=== PATIENT | female | born 1955 | race Caucasian/White ===

== ENCOUNTER 2017-06-11 12:43 | Day surgery (SDC) | payer BC, MEDICARE, SELFPAY ==
[2017-06-11 12:58] VITALS: BP 182/94; PULSE 97; RESP 16; TEMP 36.7; O2SAT 99; BMI 27.6
[2017-06-11 13:16] LABS: Bedside Glucose 106 mg/dL (70-110)
--- NOTE | 2017-06-11 15:28 | COLBX_PTH ---
PATIENT: MAXIMO WALDEN LOC: EN U#:[id number] AGE/SX: 62/F ROOM: RE06/11/[address]: Dr. Juventino Dupree MD : [id number] BED: DIS: 06/11/2017 SPEC #: [id number] RECD: 06/12/17 11:47 STATUS: MARTI REAntonio #: [id number] MARI: 06/11/17 15:[address]: Juventino Dupree DEPT: SURGICAL PATHOLOGY RECD BY: Rich Sotomayor ENTERED: 06/12/17 11:48 SP TYPE: COLON BX OTHR DR: Dr. Anupam Alvarado MD Tissues: Cecum, NOS Procedures: Surgery Specimen Level IV HEADER OPERATION: Colonoscopy PRE-OP DIAGNOSIS: Screening TISSUE SUBMITTED: Cecal polyp MICROSCOPIC DIAGNOSIS Cecal polyp, biopsy: Tubular adenoma. SJ:christian 06/13/17 MICROSCOPIC DESCRIPTION Slides are reviewed. GROSS DESCRIPTION Received in fixative is one container labeled with the patient's name and designated cecal polyp. The specimen consists of multiple irregular fragments of light price soft tissue that in aggregate measure 1 x 0.2 x 0.1 cm. The specimen is totally submitted in one cassette. / SJ:christian 06/12/17 TC:1 CPT: 22936
[2017-06-11 15:41] VITALS: BP 109/52; BP 182/94; PULSE 76; RESP 16; TEMP 36.3; O2SAT 94
[2017-06-11 15:45] VITALS: BP 120/74; BP 182/94; PULSE 78; RESP 16; O2SAT 95
[2017-06-11 15:50] VITALS: BP 142/71; BP 182/94; PULSE 75; RESP 16; O2SAT 96
[2017-06-11 15:55] VITALS: BP 142/77; BP 182/94; PULSE 76; RESP 16; O2SAT 96
[2017-06-11 16:11] VITALS: BP 140/82; BP 182/94; PULSE 77; RESP 16; TEMP 36.5; O2SAT 96
--- NOTE | 2017-06-16 07:34 | PCM.OPRPT ---
Report of Operation Date of Procedure: 06/11/17 Pre-Operative Diagnosis: screening colonoscopy Post-Operative Diagnosis: polyps in cecum and mid sigmoid, few diverticula Surgery/Procedure Performed:: colonoscopy with snare polypectomy forest pathology professor: None Type of Anesthesia:: MAC Anesthesiologist: Junaid Dietrich Specimen's removed: cecal polyp Description of Procedure: The patient was brought to the endoscopy suite. Sign in was performed verifying patient, site, planned procedure, critical nursing information, the patient was monitored with cardiac, pulse oximetric, and blood pressure monitoring devices. Monitored anesthetic care was provided for sedation. Following IV sedation the patient was positioned for colonoscopy. A digital rectal exam was performed which revealed no palpable abnormalities The video colonoscope was inserted and advanced to the cecum as verified by the ileocecal valve, cecal base anatomic features and palpation. there were small polyps noted in the cecum, which removed with snare polypectomy and sent to pathology. The remainder of the cecum and ascending colon and transverse colon was otherwise unremarkable. the patient had few diverticula in the mid sigmoid region. There was a small polyp in the sigmoid region. This was also removed with snare polypectomy but no tissue remained to be sent. The remainder of the colonoscopy was unremarkable. Scope was retroflexed and the anal verge was unremarkable. The patient tolerated the procedure well and was brought to recovery in stable condition
--- NOTE | 2017-06-16 07:37 | OP.PCM_ITS ---
Report of Operation Date of Procedure: 06/11/17 Pre-Operative Diagnosis: screening colonoscopy Post-Operative Diagnosis: polyps in cecum and mid sigmoid, few diverticula Surgery/Procedure Performed:: colonoscopy with snare polypectomy safe expert: None Type of Anesthesia:: MAC Anesthesiologist: Junaid Dietrich Specimen's removed: cecal polyp Description of Procedure: The patient was brought to the endoscopy suite. Sign in was performed verifying patient, site, planned procedure, critical nursing information, the patient was monitored with cardiac, pulse oximetric, and blood pressure monitoring devices. Monitored anesthetic care was provided for sedation. Following IV sedation the patient was positioned for colonoscopy. A digital rectal exam was performed which revealed no palpable abnormalities The video colonoscope was inserted and advanced to the cecum as verified by the ileocecal valve, cecal base anatomic features and palpation. there were small polyps noted in the cecum, which removed with snare polypectomy and sent to pathology. The remainder of the cecum and ascending colon and transverse colon was otherwise unremarkable. the patient had few diverticula in the mid sigmoid region. There was a small polyp in the sigmoid region. This was also removed with snare polypectomy but no tissue remained to be sent. The remainder of the colonoscopy was unremarkable. Scope was retroflexed and the anal verge was unremarkable. The patient tolerated the procedure well and was brought to recovery in stable condition
== END 2017-06-11 16:37 | disposition home or self-care (01) ==
LOC: EN 12:44 → AC 12:48
PROVIDERS: Family Provider Family Medicine; PCP Family Medicine; Visit Provider Surgery
PROC: 0DJD8ZZ Inspection of Lower Intestinal Tract, Via Natural or Artificial Opening Endoscopic (ICD-10-PCS; CPT 45378; principal; 2017-06-11 13:40)
DX: Z12.11 Encounter for screening for malignant neoplasm of colon (principal); D12.0 Benign neoplasm of cecum; K63.5 Polyp of colon; K57.30 Diverticulosis of large intestine without perforation or abscess without bleeding; J45.909 Unspecified asthma, uncomplicated; F32.9 Major depressive disorder, single episode, unspecified; F41.1 Generalized anxiety disorder; E11.9 Type 2 diabetes mellitus without complications; M15.9 Polyosteoarthritis, unspecified; I10 Essential (primary) hypertension; E78.00 Pure hypercholesterolemia, unspecified; E06.9 Thyroiditis, unspecified; Z87.19 Personal history of other diseases of the digestive system; Z86.72 Personal history of thrombophlebitis; Z85.42 Personal history of malignant neoplasm of other parts of uterus; Z86.718 Personal history of other venous thrombosis and embolism; Z86.79 Personal history of other diseases of the circulatory system; Z78.0 Asymptomatic menopausal state; Z96.641 Presence of right artificial hip joint; Z96.652 Presence of left artificial knee joint; Z90.711 Acquired absence of uterus with remaining cervical stump; F17.210 Nicotine dependence, cigarettes, uncomplicated; Z79.82 Long term (current) use of aspirin; Z79.899 Other long term (current) drug therapy
CPT/HCPCS: 45385; 82962; 88305; J7120

== ENCOUNTER 2017-06-18 13:30 | Outpatient (RCR) | payer BC, MEDICARE, SELFPAY ==
--- NOTE | 2017-05-01 14:43 | HP.OTEVAL ---
Patient's Visit Information MAXIMO WALDEN is a 62 year old F, referred to Occupational Therapy by Berny Henson DR[facility], with a diagnosis of right hand pain. Date of Evaluation: 04/28/17 Occupational Therapist: RACHEL Silva/Zen, CHT - Subjective Subjective: This 64 year old female was seen for inital OT eval on 04-28-17. pt states she was walking her dog on 04-22-17, he went to run and she had the dog leash wrapped around her right hand. pt feel like her fingers were hyper-extended during this event. X-ray was taken but negative for fx. 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 IF MCP -10/85 PIP -25/90 DIP -5/20. MF MCP -10/85 PIP -15/95 DIP -10/20. RF MCP -5./85 PIP -15/95 DIP -25/0. LF MCP -10/90 PIP -15/85 DIP -5/15. Left. IF MCP 0/85 PIP 0/105 DIP 0/45. MF MCP 0//85 PIP +5/100 DIP +/50. RF MCP +10/75 PIP +15/105 DIP +10/25. LF MCP 0/80 PIP +5/95 DIP +10/25 - Strength Glass Processing Worker: Right trace left 55# Lateral Pinch: NT Tripod Pinch: NT - Sensation Sensation Comments: denies any change in sensation - Hand/Wrist Evaluation Total Score of Pain & Functional Sections: 59 - Goals Goal:: PT will demo at increase in right hospital pharmacy director strength to 30# or greater to increase ind on BADLS and IADLS Goal:: pt will report pain in hands no greater than 2/10 when performing BADLs and IADLs by d/c Goal:: pt will demo understanding of joint protection and use of ad. eq. with BADLS and IADls to increase pts ind. with BADLS and IADLS by D/c - Rehabilitation General Assessment: pt demo the ability to form a composite fist but is a struggle to reach and task was painful- pt demo limited ex of right digits- pain with compostie fist- edema is better- Rehabilitation Potential: Good - Anticipated Interventions Anticipated Interventions: A/AAROM/PROM, Modalities, Orthoses, Joint Protection/Energy Conservation, Ergonomic Education - Visit Plan Frequency: 1-2x /Week Duration: 4 Weeks General Plan: re'd therapy sessions -12xweek for 4 weeks to ed. pt on joint protection césar. during her performance of BADLS and ed. pt on Ad. eq.- therapy will use modalities as need to decrease joint stiffness. TEXT: Thank you for the opportunity to evaluate your patient. For Medicare and Medicare HMO plans, please review the plan of care and approve it. It will need to be FAXED BACK to us at [phone] for Medicare purposes. Please let me know if there are questions or concerns regarding this plan of care. Physician Signature: Date:
--- NOTE | 2017-06-18 16:41 | HP.OTDCSUM_ITS ---
HP - OT D/C Summary It has been my pleasure to treat MAXIMO WALDEN under orders from Berny Henson, for the diagnosis of right hand pain for a total of 8 visit(s). Please see the following information for a summary of their discharge status. - Overall Improvement % Improvement: 90 - Objective Objective/Function: pt demo full funcitonal digit ext and flex of fingers at PLOF with arthritis deformities- pt demo with a 70# director of medical education strength - Goals Patient Goals: Regain Mobility, Regain Strength, Decrease Pain, Decrease Swelling/Stiffness, Use Hand/Wrist/Arm Normally Again Goal:: PT will demo at increase in right director of medical education strength to 30# or greater to increase ind on BADLS and IADLS Goal:: pt will report pain in hands no greater than 2/10 when performing BADLs and IADLs by d/c Goal:: pt will demo understanding of joint protection and use of ad. eq. with BADLS and IADls to increase pts ind. with BADLS and IADLS by D/c - Plan Plan: D/C - D/C Information Discharge Comments: pt was seen for 8 OT sessions- therapy worked with pt to find ad. eq and home modifications for her BADls and IADLS. pt was able to gain full functional ROM of her right hand with pain no greater than 1-2/10 (achy pain). pt demo a increase in right director of medical education strength to 70#. pt has met functional goals and is D/C at this time. If there are questions or concerns regarding this patient's occupational therapy , please fell free to call me at [phone]. Thank you for the referral of this patient. Sincerely, Bessie Vega, OTR/L, CHT
== END 2017-06-18 19:00 | disposition home or self-care (01) ==
LOC: OT 13:30
PROVIDERS: Family Provider Family Medicine; PCP Family Medicine; Visit Provider Orthopaedic Surgery
DX: M79.641 Pain in right hand (principal)
CPT/HCPCS: 97035; 97110; 97140; 97166; 97168; 97530; G8987; G8988; G8989

== ENCOUNTER → 2017-12-30 18:07 | Outpatient (CLI) | payer BC, MEDICARE, SELFPAY ==
[2018-01-05 13:31] LABS: HPV Reflexed? NOT INDICATED
== END ==
PROVIDERS: Family Provider Family Medicine; PCP Family Medicine; Referring Provider Obstetrics & Gynecology; Visit Provider Obstetrics & Gynecology
DX: Z12.4 Encounter for screening for malignant neoplasm of cervix (principal)
CPT/HCPCS: 87624; 88175; G0145

== ENCOUNTER → 2018-10-08 | Outpatient (CLI) | payer BC, MEDICARE, SELFPAY ==
[2017-12-30 14:58] VITALS: BMI 29.1
[2018-10-08 09:44] LABS: Lipase 236 U/L (73-393)
== END | disposition home or self-care (01) ==
LOC: LABSPEC 08:30
PROVIDERS: Family Provider Family Medicine; PCP Family Medicine; Referring Provider Family Medicine; Visit Provider Family Medicine
DX: R10.9 Unspecified abdominal pain (principal)
CPT/HCPCS: 83690

== ENCOUNTER 2018-11-11 10:19 | Day surgery (SDC) | payer BC, MEDICARE, SELFPAY ==
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
[2018-11-11] VITALS (7 sets, daily range): BP systolic 116–155; BP diastolic 73–79; PULSE 78–84; RESP 16; TEMP 36.3–36.8; O2SAT 93–98; BMI 27.9
[2018-11-11] MEDS: Lactated Ringers 1,000 ML 100 ML IV (10:49)
[2018-11-11 10:56] LABS: Bedside Glucose 101 mg/dL (70-110)
--- NOTE | 2018-11-11 11:30 | IMM_PTH ---
PATIENT: MAXIMO WALDEN LOC: EN U#:[id number] AGE/SX: 63/F ROOM: RE11/11/[address]: Dr. Juventino Dupree MD : 1955 BED: DIS: 11/11/2018 SPEC #: [id number] RECD: 11/11/18 15:23 STATUS: MARTI REQ #: [id number] MARI: 11/11/18 11:[address]: Juventino Dupree DEPT: IMMUNOHISTOCHEMISTRY RECD BY: Jami Monsivais ENTERED: 11/11/18 15:24 SP TYPE: IMMUNO OTHR DR: Dr. Anupam Alvarado MD Tissues: B - Stomach, NOS Procedures: H Pylori (initial) PHYSICIAN & INSTITUTION [place] [id number] SPECIMEN INFORMATION: Tissue Source: B - Antral biopsy Clinical Info: Abdomen pain Specimen Number: [id number] CPT code: 98566 METHODOLOGY: Deparaffinized sections of prefer/formalin-fixed tissue or PAP/DQ stained slides are incubated with monoclonal/polyclonal antibodies/oligonucleotide probes. Localization is made via biotin free immunoperoxidase method. Appropriate controls are performed and reacted as expected. Results on target cell population are indicated in the following table: RESULTS: ANTIBODY / CLONE RESULT Block B H Pylori (polyclonal) negative These tests were developed and their performance characteristics determined by [facility]. They may not have been cleared or approved by the U.S. Food and Drug Administration. The FDA has determined that such clearance or approval is not necessary. INTERPRETATION: B. Antral biopsy: Negative for Helicobacter pylori organisms. AM:christian 11/12/18
--- NOTE | 2018-11-11 11:30 | EGD_PTH ---
PATIENT: MAXIMO WALDEN LOC: EN U#:[id number] AGE/SX: 63/F ROOM: RE11/11/[address]: Dr. Juventino Dupree MD : 1955 BED: DIS: 11/11/2018 SPEC #: [id number] RECD: 11/11/18 13:40 STATUS: MARTI YAYA #: [id number] MARI: 11/11/18 11:[address]: Juventino Dupree DEPT: SURGICAL PATHOLOGY RECD BY: Mary Kirkpatrick ENTERED: 11/11/18 14:32 SP TYPE: EGD BIOPSY OT DR: Dr. Anupam Alvarado MD Tissues: A - Duodenum, NOS B - Gastric mucous membrane C - Esophagus, NOS Procedures: Surgery Specimen Level IV HEADER OPERATION: [place] DIAGNOSIS: Abdominal pain TISSUE SUBMITTED: A. Duodenal biopsy, B. Antral biopsy for histo and H. pylori, C. Distal esophagus biopsy MICROSCOPIC DIAGNOSIS A. Duodenum, biopsy: No pathologic change. B. Gastric antrum, biopsy: Mild chronic inflammation. See comment. C. Distal esophagus, biopsy: Fragment of benign squamous mucosa. No evidence of inflammation. AM:christian 11/12/18 COMMENT B. The results of immunohistochemistry for Helicobacter pylori will be reported separately ([id number]). MICROSCOPIC DESCRIPTION Slides are reviewed. GROSS DESCRIPTION A - Received in fixative is one container labeled with the patient's name and designated duodenal biopsy. The specimen consists of one irregular fragment of light price soft tissue that measures 0.3 x 0.3 x 0.1 cm. The specimen is totally submitted in one cassette. B -Received in fixative is one container labeled with the patient's name and designated antrum biopsy. The specimen consists of one irregular fragment of light price soft tissue that measures 0.3 x 0.3 x 0.1 cm. The specimen is totally submitted in one cassette. C - Received in fixative is one container labeled with the patient's name and designated distal esophagus. The specimen consists of one irregular fragment of light price soft tissue that measures 0.3 x 0.1 x 0.1 cm. The specimen is totally submitted in one cassette. / PITO:christian 11/11/18 TC:3 CPT: 25556 x3
--- NOTE | 2018-11-11 11:53 | OP.ENDO_ITS ---
11/11/2018 Anupam Alvarado Re : Upper GI endoscopy procedure for Liliane Benton Dear Jenny This procedure was performed on Sunday, November 11, 2018. My impressions and recommendations are as follows: Impressions : - Normal examined jejunum. - No specimens collected. Recommendations : - Resume previous diet. - Continue present medications. - Use Prilosec (omeprazole) 40 mg PO BID. - Return to my office in 3 days. My findings are described in the full procedure note, which is enclosed. If I can be of further assistance, please feel free to contact me at Doctor phone number(s): , Work: . Sincerely, Juventino Dupree MD 11/11/2018 11:52:42 AM This report has been signed electronically.
== END 2018-11-11 12:20 | disposition home or self-care (01) ==
LOC: EN 10:21 → AC 10:23
PROVIDERS: Family Provider Family Medicine; PCP Family Medicine; Referring Provider Family Medicine; Visit Provider Surgery
PROC: 0DJ08ZZ Inspection of Upper Intestinal Tract, Via Natural or Artificial Opening Endoscopic (ICD-10-PCS; CPT 43235; principal; 2018-11-11 11:25)
DX: K26.9 Duodenal ulcer, unspecified as acute or chronic, without hemorrhage or perforation (principal); K29.70 Gastritis, unspecified, without bleeding; K44.9 Diaphragmatic hernia without obstruction or gangrene; J45.909 Unspecified asthma, uncomplicated; H81.10 Benign paroxysmal vertigo, unspecified ear; F32.9 Major depressive disorder, single episode, unspecified; E11.9 Type 2 diabetes mellitus without complications; K21.9 Gastro-esophageal reflux disease without esophagitis; M15.9 Polyosteoarthritis, unspecified; I10 Essential (primary) hypertension; E78.00 Pure hypercholesterolemia, unspecified; E04.2 Nontoxic multinodular goiter; E06.9 Thyroiditis, unspecified; M72.2 Plantar fascial fibromatosis; L71.9 Rosacea, unspecified; F41.1 Generalized anxiety disorder; Z86.718 Personal history of other venous thrombosis and embolism; Z87.19 Personal history of other diseases of the digestive system; Z85.42 Personal history of malignant neoplasm of other parts of uterus; Z86.010 Personal history of colon polyps; Z78.0 Asymptomatic menopausal state; Z79.82 Long term (current) use of aspirin; Z79.899 Other long term (current) drug therapy; F17.210 Nicotine dependence, cigarettes, uncomplicated
CPT/HCPCS: 43239; 82962; 88305; 88342; 94640; J7120

== ENCOUNTER 2019-01-22 12:00 | Outpatient (RCR) | payer BC, MEDICARE, SELFPAY ==
[2018-12-23 14:48] VITALS: BMI 27.9
--- NOTE | 2019-01-22 12:22 | HP.PTEVAL ---
Patient's Visit Information MAXIMO WALDEN is a 63 year old F referred to Physical Therapy by Noble Zheng DO with a diagnosis of L Achilles Tendinitis. Date of Evaluation: 12/28/18 Physical Therapist: Debi Miller DPT - Visit Plan Frequency: 2x /Week Duration: 4 Weeks Plan: Re-check soon. - Subjective Findings: 12/12/18 Pt. got out of bed and excruciating pain in bottom/back of heel once she stood up. Swelling/redness at ankle & going up. Ignored that day - was at ER for dog. Next day went to urgent care after symptoms didn't subside. X-rays - showed spurring. Determined either flare up from spurs or gout. Started on 20 mg prednisone. pain was at 708/10. 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 Upped prednosone to 60. Advised to stay off and ice. 12/16/18 had an appointment with lanolin plant operator for unrelated callus - assessed ankle, placed in boot for WB'ing. Saw Dr. 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 Advised to start weaning herself out of boot. Swelling and pain has decreased. Doesn't feel stable out of boot, feels weak. Standing for an hour (even in boot) discomfort at back of heel. Wears boot when outside of the house, up/down stairs, standing awhile to prepare food. Will take boot off for a couple hours and will amb. stairs once in awhile. Balance issues & neuropathy in both feet R>L. Two-story house, 12 steps - laundry on bottom floor, 3 steps into house, railing with all stairs. Worst: 4-5/10 Aggravating: prolonged, stairs, walking through grocery store Best: 1/10 Eases: Ice, rest, general movement. Dimas disruption of sleep. Noticeed N/T at top of L foot the other day. Radiating pain up to mid-calf. Occupation: Retired Typical Activities: Going to the gym to workout (25262 steps a day) fUE free weights/TRX squats & lunges/TABATTA (no high impact exercises), gardening, yard work, walking the dogs (2-3 miles), jogging [place] [employer] [place] with dogs, riding motorcycle. Wears low-cut [employer] hiking sneakers, orthotics in both for 40 years. PMH/Meds: DM-II, RA, see chart. DVT in Lesser Saphenous L leg 2006. - Pain Left Foot Pain Intensity (Out of 10): 0 - Objective Posture: Arrives in CAM boot. SLight FH, RS. Gait: Outside of CAM Boot: B pronation, decreased stance time on L, Pes Planus, antalgic, decreased diya. HR/TR: WFL w/ UE assist (tightness/tweak w/ TR). SLS: R - 7 seconds before LOB righted by UE. L - 2 seconds before LOB, fearful to attempt. Increase in pain 2/10 w/ weight shift to L. ROM: ANkle PF 40 25 degrees, DF 12 degrees, Eversion 35 degrees, Inversion 30 degrees. Strength: Ankle 4+/5 throughout Core: fair minus. Flexibility; Gastroc: severe Soleus: Severe Hamstring: Mod. Palpation: TTP at distal achilles increased size compared to R, decreases more proximal along the tendon. Girth: Figure 8 R 51 cm L 50 cm, malleoli R 22 cm L 23 cm - Goals Goal 1:: Pt. will be I w/ HEP & progression. Goal Time Frame: 4-6 Weeks Goal 2:: Pt. will demo 5/5 ankle strength Goal Time Frame: 4-6 Weeks Goal 3:: Pt. will demo 20 degrees of ankle DF Goal Time Frame: 4-6 Weeks Goal 4:: Pt. will amb. >300 ft. w/ normalized gait pattern & no CAM boot. Goal Time Frame: 4-6 Weeks - Rehabilitation Potential Physical Therapy Diagnosis: Presents w/ hypmobility, impaired ROM/flexibility, decreased strength , and pain which leads to antalgic gait. Rehabilitation Potential: Good - Anticipated Interventions Patient/Client Instruction: Educate patient on: Condition For the Purpose of:: To decrease pain Therapeutic Exercise to Include: Strength training, Endurance training, Balance training, Agility training, Body mechanics, Postural training, Flexibilty training, Gait and locomotor training, Active ROM, Dynamic Lumbar Stabilization For the Purpose of:: To improve muscle performance and motor function Iontophoresis (with Dexamethozone, with Acetic acid): Yes Cryotherapy (ice pack, ice massage): Yes Thermo therapy (hot pack): Yes Ultrasound (thermal/non thermal): Yes For the Purpose of:: To decrease pain Thank you for the opportunity to evaluate your patient. For Medicare and Medicare HMO plans, please review the plan of care and approve it. It will need to be FAXED BACK to us at [phone] for Medicare purposes. For Medicare only, by signing this I certify the plan of care. Please let me know if there are questions or concerns regarding this plan of care. Physician Signature: Date:
--- NOTE | 2019-01-22 12:28 | HP.PTDCSUM ---
HP - PT D/C Summary It has been my pleasure to treat MAXIMO WALDEN under orders from Noble Zheng DO, for the diagnosis of L Achilles Tendinitis for a total of 8 visit(s). Discharge Date: Please see the following information for a summary of their discharge status. - Subjective Subjective: Patient reports that she saw Dr. Eubanks- he gave her a night splint which she is wearing- trying to change things with orthotics and other options. She plans to go back to him in a few weeks. She has some good ideas now to decrease pain and is now able to touch her foot without pain. Fears she is chronic. - Pain Left Foot Pain Intensity (Out of 10): 0 - Overall Improvement % Improvement: 90 - Objective Objective/Function: Gait: no CAM walker-no significant devaition noted HR/TR: WFL w/ UE assist (tightness/tweak w/ TR). SLS: R - 10 seconds before LOB righted by UE. L - 8 seconds before LOB ROM: WFL Strength: Ankle 4+/5 throughout Core: fair minus. Flexibility; Gastroc: severe Soleus: Severe Hamstring: Mod. Palpation: TTP at distal achilles increased size compared to R, decreases more proximal along the tendon. - Goals Goal 1:: Pt. will be I w/ HEP & progression. Goal Progress: Goal Met Goal 2:: Pt. will demo 5/5 ankle strength Goal Progress: Progressing Goal 3:: Pt. will demo 20 degrees of ankle DF Goal Progress: Progressing Goal 4:: Pt. will amb. >300 ft. w/ normalized gait pattern & no CAM boot. Goal Progress: Goal Met - Plan Plan: Discharge to I HEP - D/C Information If there are questions or concerns regarding this patient's physical therapy, please feel free to call me at [phone]. Thank you for the referral of this patient. Sincerely, Debi Miller DPT
== END 2019-01-22 19:00 | disposition home or self-care (01) ==
LOC: PT 12:00
PROVIDERS: Family Provider Family Medicine; PCP Family Medicine; Referring Provider Orthopaedic Surgery; Visit Provider Orthopaedic Surgery
DX: M76.62 Achilles tendinitis, left leg (principal)
CPT/HCPCS: 97035; 97110; 97140; 97161

== ENCOUNTER 2019-04-17 11:25 | Observation (INO) | payer OTHER, MEDICARE, SELFPAY ==
[2018-12-23 14:48] VITALS: BMI 27.9
[2019-04-17] VITALS (11 sets, daily range): BP systolic 113–190; BP diastolic 44–99; PULSE 62–107; RESP 13–21; TEMP 36.4–36.9; O2SAT 95–98; BMI 30.1; BMI 29.3; BMI 29.4
--- NOTE | 2019-04-17 11:53 | EKG12_ITS ---
Test Reason : CP Blood Pressure : / mmHG Vent. Rate : 106 BPM Atrial Rate : 106 BPM P-R Int : 140 ms QRS Dur : 080 ms QT Int : 330 ms P-R-T Axes : 068 031 045 degrees QTc Int : 438 ms Sinus tachycardia Possible Left atrial enlargement Borderline ECG Confirmed by CARSON HAIDER, RAEGAN ([id number]), publication editor MERVIN RICARDO ([id number]) on 04/19/2019 2:12:54 PM Referred By: Confirmed By:PAULA BYRD MD
--- NOTE | 2019-04-17 11:53 | RAD_ITS ---
STUDY: X-RAY CHEST REASON FOR EXAM: Female, 64 years old. HIGH BP TECHNIQUE: AP COMPARISON: 09/27/2015 FINDINGS: EKG leads project over the chest. Mildly coarsened interstitial lung markings (stable) but no airspace consolidation. The nodular density projecting in the right retrocardiac region is not confirmed on this exam. There is no demonstrated pleural abnormality. Normal size heart. Normal mediastinum and dipesh. Normal visualized pulmonary arteries. There is atherosclerotic calcification of the aortic arch with tortuosity. There are diffuse degenerative changes of the visualized thoracic spine. Normal visualized ribs, clavicles, and shoulders. There is no demonstrated abnormality of the visualized soft tissue structures of the upper abdomen. RAD/Chest PA and Lateral IMPRESSION: 1. No acute cardiopulmonary process. 2. Stable chronic changes, as above. Electronically Signed: Timmy Starkey MD ([place]) at 12:26 EST , Service support ,
--- NOTE | 2019-04-17 11:56 | ED.VISSUMM ---
- ER Visit Summary Date of Service: 04/17/19 Chief Complaint: Chest pain History of Present Illness: The patient is a 64 F who presents with chest pain that began today. Patient states she had a similar episode 4 days ago. Patient states she feels pressure in the left side of her chest. Patient states this is worse with any exertion. Patient states that improves with rest. Patient admits to some lightheadedness with this. Patient also admits to a cough. Patient states she was having palpitations where she felt like her heart was beating hard. Patient states her pain is improving and has resolved since she arrived here in the emergency department. Patient does admit to some shortness of breath with this. Physical Examination: Vital signs are stable except for an elevated blood pressure of 182/99 and a mild tachycardia of 107. Patient is afebrile. Patient is in no acute distress. Oral mucosa is pink and moist. Neck is supple. Trachea is midline. There is no JVD noted. Heart was regular rate and rhythm. Lungs are clear and equal bilaterally. Abdomen is soft. Bowel sounds are normal. There is no tenderness. There is no rebound or guarding noted. Skin is warm dry. Cranial nerves II through XII are intact. There are no focal motor or sensory deficits noted. Extremities are intact. There is no calf tenderness or edema. Test Results: EKG shows sinus tachycardia with a rate of 106. There are no acute ST or T wave changes. This was unchanged compared to previous EKG dated 09/27/2015. CBC, basic metabolic profile, troponin were obtained were all within normal limits. PA and lateral chest x-ray was obtained. There are chronic changes but no acute cardiopulmonary process. Emergency Department Course and Treatment: Patient was given aspirin here. Patient was given a dose of clonidine. Since the patient denies any chest pain at the present time, nitroglycerin was withheld. Patient was feeling better on reevaluation. Patient's blood pressure improved. Given the patient's history and risk factors, I feel the patient should be admitted for observation for chest pain work-up. Patient has a HEART score of 6 and a RISHABH risk score of 4. Patient understands and is agreeable with the plan. Case was discussed with the hospitalist. She will admit the patient to her service. All questions were answered. Disposition: Admit to hospital Impression: Chest pain This note was generated with Dragon dictation software. It may contain incorrect words, spelling, and punctuation that were not noted in review of the chart prior to signing ED Disposition - Plan for ED Patient: Disposition: Acute Care Hospital [facility] Diagnosis: Chest pain Referrals: Anupam Alvarado MD [Primary Care Provider] -
[2019-04-17] MEDS: Aspirin 81 MG TAB.CHEW 324 MG PO (12:03)
[2019-04-17 12:09] LABS: Absolute Lymphocyte Count 1.66 X10^3/uL (0.83-4.51); Absolute Neutrophil Count 6.5 X10^3/uL (2.0-7.7); Basophil# 0.06 X10^3/uL; Basophil% 0.7 % (0-1); Eosinophil# 0.08 X10^3/uL; Eosinophils% 0.9 % (0-5); Hematocrit 44.7 % (37-47); Hemoglobin 15.1 g/dL (12.0-15.0); Lymphocyte # 1.66 X10^3/ul (4.0); Lymphocyte % 18.5 % (19-41); Mean Corp Hgb Conc 33.8 g/dL (32-36); Mean Corpuscular Hgb 31.2 pg (27.0-32.0); Mean Corpuscular Volume 92.4 fL (81-99); Mean Platelet Vol. 10.6 fl (6.2-12.0); Monocyte# 0.66 X10^3/uL; Monocyte% 7.4 % (0-10); NRBC Flagged by Analyzer 0 % (0-5); Neutrophil # 6.47 X10^3/uL (2.7-7.7); Neutrophil % 72.3 % (47-70); Platelet Count 229 K/mm3 (150-450); RBC Distribution Width CV 13.4 % (11.6-14.6); RBC Distribution Width SD 45.7 fl (35.1-43.9); Red Blood Count 4.84 M/mm3 (4.2-5.4)
[2019-04-17] MEDS: cloNIDine HCl 0.2 MG Tablet PO (12:15)
[2019-04-17 12:53] LABS: Anion Gap 4 (5-15); BUN 19 mg/dL (7-18); BUN/Creat Ratio 19.1 RATIO (10-20); Calcium,Total 9.3 mg/dL (8.5-10.1); Chloride 105 mmol/L (98-107); Creatinine, Serum 0.99 mg/dL (0.55-1.02); EST Glomerular Filtration Rate 60 mL/min (>60); Est Glom Filt Rate - Afr Amer 72 mL/min (>60); Estimated Creatinine Clearance 46.86 ml/min; Glucose 100 mg/dL (74-106); Sodium Level 137 mmol/L (136-145)
--- NOTE | 2019-04-17 13:45 | PCM.HP.STD ---
History of Present Illness Date of Admission: 04/17/19 Chief Complaint: chest pain The patient is a 64 year old F with a past medical history of hypertension hyperlipidemia as well as diet-controlled diabetes. She was admitted through the ED on 04/17/2019 with a complaint of chest pain. Patient states she suddenly started not feeling well earlier today and check her blood pressure. Her blood pressure was markedly elevated in the 190s systolic. She states her blood pressures usually well controlled. At that time, she also started having pressure-like chest pain which was nonradiating and had no aggravating factors and was not relieved by rest. She denied any dizziness, lightheadedness, palpitations or nausea vomiting. Of note, patient had similar symptoms earlier in the week when she was using a home elliptical. At that time chest pain was brought on by onset of exercising on the elliptical machine and relieved when she stopped exercising. She went see her PCP at that time and she was found to have markedly elevated blood pressure. Her blood pressure medications were adjusted and she was sent home. She states when she checked her blood pressure yesterday, it was around 119 systolic. Her blood pressure is usually well controlled. She denies any history of heart disease but does have a strong family history of heart disease in her parents and siblings. Arrival in the ED, blood pressure was 182/89 and pulse rate was 107 with respiratory rate of 21. She was saturating at 98% on room air. Chemistry was unremarkable initial troponin was negative. CBC was also unremarkable. Chest x-ray showed no acute cardiopulmonary process. She has been admitted to be managed for chest pain rule out ACS and poorly controlled hypertension. [] Past Medical History Past Medical History (Chronic Problems): Chronic Problems (Last Reviewed 12/23/18 @ 15:01 by Tony Kurtz) Rosacea (Chronic) Arthritis (Chronic) Vitamin D deficiency (Chronic) Latesha's disease (Chronic) Hypothyroidism (Chronic) Diabetes (Chronic) Hypertension (Chronic) Asthma (Chronic) Medical History: Medical History (Last Reviewed 12/23/18 @ 15:01 by Tony Kurtz) Rosacea (Chronic) L71.9 Arthritis (Chronic) M19.90 Vitamin D deficiency (Chronic) E55.9 Latesha's disease (Chronic) E06.3 Hypothyroidism (Chronic) E03.9 Diabetes (Chronic) E11.9 Hypertension (Chronic) I10 Asthma (Chronic) J45.909 Allergies cephalexin monohydrate [From Keflex] Allergy (Verified 11/11/18 10:35) Hives escitalopram Allergy (Verified 11/11/18 10:35) Other SUICIDAL IDEATIONS amoxicillin Adverse Reaction (Verified 11/11/18 10:35) Upset Stomach budesonide [From Symbicort] Adverse Reaction (Verified 11/11/18 10:35) Other LOSS OF URINATION bupropion Adverse Reaction (Verified 11/11/18 10:35) Other cyclosporine Adverse Reaction (Verified 11/11/18 10:35) Nausea formoterol [From Symbicort] Adverse Reaction (Verified 11/11/18 10:35) Other LOSS OF URINATION ibandronate sodium Adverse Reaction (Verified 11/11/18 10:35) Pain in joints naproxen Adverse Reaction (Verified 11/11/18 10:35) Upset Stomach NSAIDS (Non-Steroidal Anti-Inflamma Adverse Reaction (Verified 11/11/18 10:35) Rash paroxetine Adverse Reaction (Verified 11/11/18 10:35) Other tiotropium [From Spiriva with HandiHaler] Adverse Reaction (Verified 11/11/18 10:35) Other LOSS OF URINATION varenicline Adverse Reaction (Verified 11/11/18 10:35) Other Home Medications: Ambulatory Orders Medication Instructions Recorded Albuterol Inhaler [Ventolin Hfa 1 - 2 puff INHALATION Q4H PRN PRN 09/27/15 (SP)] Aspirin [Aspirin, Baby] 81 mg PO DAILY@0800 09/27/15 Calcium Phosphate Trib/Vit D3 1 ea PO DAILY 09/27/15 [Citracal + D3 Gummies] Cholecalciferol (Vitamin D3) 50,000 unit PO QMONTH 09/27/15 [Decara] Levothyroxine [Synthroid] 125 mcg PO DAILY 09/27/15 Losartan Potassium [Cozaar] 100 mg PO DAILY 09/27/15 Magnesium Oxide [Mag-Ox 400] 400 mg PO DAILY 09/27/15 Metoprolol(XL)Succ [Toprol Xl 25 mg PO DAILY 09/27/15 (Beta Chantel)] [place]-3 Fatty Acids/Fish Oil 3,400 mg PO DAILY 06/04/17 [[place] 3 1,000 mg Softgel] Pravastatin [Pravachol] 20 mg PO QHS 06/04/17 Diclofenac Sodium [Pennsaid] 1 applicatio TP PRN PRN 06/09/17 Metronidazole [Metrogel Topical] 1 applic TOPICAL PRN PRN 06/09/17 Polyvinyl Alcohol [Artificial 1 drp EACH EYE DAILY PRN 06/09/17 Tears] Fluticasone 0.05% [Flonase Nasal 1 spray NASAL PRN PRN 11/10/18 [place]] Fluticasone Prop 250 mcg [Flovent 1 puff INHALATION BID 11/10/18 Diskus 250 mcg] Amlodipine [Norvasc] 2.5 mg PO DAILY 04/17/19 Clotrimazole [Mycelex] 10 mg MUCOUS MEM 5X/DAY 04/17/19 Omeprazole [Prilosec] 20 mg PO DAILY 04/17/19 Surgical History: Surgical History (Last Reviewed 12/23/18 @ 15:01 by Tony Kurtz) H/O vaginal hysterectomy Z90.710 tubes and ovaries remain History of bunionectomy of both great toes Z98.890 x2 S/P tonsillectomy and adenoidectomy Z90.89 Status post left knee replacement Z96.652 Status post right hip replacement Z96.641 right orbital repair Smoking Status: Heavy Smoker (>10/day) Tobacco Use: Cigarettes Alcohol: None Drugs: None - *Family History Maternal Family History: Family History (Last Reviewed 12/23/18 @ 15:01 by Tony Kurtz) Mother CVA (cerebral vascular accident) Hypertension Glaucoma Lung cancer Father Congestive heart failure Grandfather Prostate cancer Heart disease Congestive heart failure Review of Systems Constitutional: Denies: Chills, Fever, Malaise, Weakness, Weight Change, Fatigue Eyes: Denies: Blurred vision HEENT: Denies: Head Aches, Sinus Congestion, Sinus Drainage Cardiovascular: Reports: Chest Pain, Chest Pressure. Denies: Chest Tightness, Edema, Heaviness, Light Headedness, Orthopnea, Palpitations, Paroxysmal Noc. Dyspnea, Syncope Respiratory: Denies: Cough, Shortness of Breath, Shortness of breath at rest, Shortness of breath upon exertion, Sputum production Gastrointestinal: Denies: Abdominal Pain, Nausea, Vomiting Genitourinary: Denies: Dysuria Musculoskeletal: Denies: Joint Pain, Joint Tenderness Skin: Denies: Rash, Wounds Neurological: Denies: Numbness, Tingling, Focal weakness Psychiatric: Denies: Anxiety, Depression, Homicidal Ideations, Suicidal Ideations VTE Information - Inpt Only VTE Present on Admission: No VTE Pharm Prophylaxis ordered?: Yes Patient Problems: Active and Suspected Problems (Last Reviewed 12/23/18 @ 15:01 by Tony Kurtz) Chest pain (Acute) - Physical Exam Vitals/I&O's: Vital Signs Temp Pulse Resp BP Pulse Ox 98.1 F 71 16 157/88 H 98 04/17/19 11:26 04/17/19 13:21 04/17/19 13:21 04/17/19 13:21 04/17/19 13:21 Oxygen Delivery Method Room Air Weight: 170 lb 3.15 oz Body Mass Index (BMI) 30.1 General: Alert, Oriented x3, Cooperative, No apparent distress HEENT: Atraumatic, PERRLA, EOMI, Normocephalic Oral: Moist Mucosa Neck: Supple, No JVD, Negative Carotid Bruits Lungs: Clear to auscultation, Normal air movement, No rhonchi, No wheeze, No rales Cardiovascular: Regular rate, Regular Rhythm, Normal S1, Normal S2, No murmurs Abdomen: Bowel Sounds Present, Soft, Non Tender, Non-Distended, No Hepato-splenomegaly Extremities: No clubbing, No cyanosis, No edema, Capillary Refill Less than 3 Seconds Skin: No rashes, No breakdown Musculoskeletal: No Tenderness to Palpation of Joints or Extremities Lymphatic: No Cervical, Supraclavicular, or Inguinal Adenopathy Neurological: Cranial nerves II-XII grossly intact, Neuro grossly intact, Motor Exam 5/5 strength throughout Psych/Mental Status: Normal Affect, Appropriate, Alert and oriented to time, place, person, mood and affect Laboratory Results 04/17/19 11:41: WBC 9.0, RBC 4.84, Hgb 15.1 H, Hct 44.7, MCV 92.4, MCH 31.2, MCHC 33.8, RDW Std Deviation 45.7 H, RDW Coeff of Dagmar 13.4, Plt Count 229, MPV 10.6, Immature Gran % (Auto) 0.200, Neut % (Auto) 72.3 H, Lymph % (Auto) 18.5 L, [place] % (Auto) 7.4, Eos % (Auto) 0.9, Baso % (Auto) 0.7, Absolute Neuts (auto) 6.5, Absolute Lymphs (auto) 1.66, Nucleated RBC % 0 04/17/19 11:41: Sodium Cancelled, Potassium Cancelled, Chloride Cancelled, Carbon Dioxide Cancelled, Anion Gap Cancelled, BUN Cancelled, Creatinine Cancelled, Estim Creat Clear Calc Cancelled, Est GFR (MDRD) Af Amer Cancelled, Est GFR (MDRD) Non-Af Cancelled, BUN/Creatinine Ratio Cancelled, Glucose Cancelled, Calcium Cancelled, Troponin I Cancelled 04/17/19 12:22: Sodium 137, Potassium 5.0, Chloride 105, Carbon Dioxide 28.0, Anion Gap 4 L, BUN 19 H, Creatinine 0.99, Estim Creat Clear Calc 46.86, Est GFR (MDRD) Af Amer 72, Est GFR (MDRD) Non-Af 60, BUN/Creatinine Ratio 19.1, Glucose 100, Calcium 9.3, Troponin I < 0.015 Diagnostic Data Chest X-Ray 04/17/19 11:53 IMPRESSION: 1. No acute cardiopulmonary process. 2. Stable chronic changes, as above. Electronically Signed: Timmy Starkey MD ([place]) at 12:26 EST , Service support , Assessment/Plan All Active Problems (Last Reviewed 12/23/18 @ 15:01 by Tony Krutz) Chest pain (Acute) 64-year-old female admitted with a complaint of chest pain 1. Chest pain to r/o AC S Admit to PCU with telemetry Initial troponin was negative. EKG showed sinus tachycardia with no acute ST changes. Cycle troponins x3. Sublingual nitroglycerin as needed. P.o. aspirin 81 mg daily. For stress test on Friday if troponins remain negative. 2. Poorly controlled hypertension Blood pressure was up in the 180s when she arrived in the ED and by time of review, blood pressure had gone down to the 160s systolic. She states was also elevated at home to the 190s when she had onset of chest pain. States her blood pressure medications were recently adjusted and she took her blood pressure medications today. On amlodipine 2.5 mg daily, losartan 100 mg daily and metoprolol 25 mg daily. We will adjust her blood pressure medications as needed. IV hydralazine PRN for blood pressure more than 160/110 3. Hypothyroidism: On Synthroid 4. Hyperlipidemia: On statin 5. History of asthma: Not in exacerbation. Continue Ventolin inhaler as needed and Flovent. 6. Type 2 diabetes mellitus: Diet-controlled. Insulin sliding scale. Accu-Cheks AC at bedtime. DVT prophylaxis: lovenox Code Visit Inpatient E&M: 25028 Subs Hosp L2
--- NOTE | 2019-04-17 15:10 | EKG12_ITS ---
Test Reason : CP ADMISSION Blood Pressure : / mmHG Vent. Rate : 063 BPM Atrial Rate : 063 BPM P-R Int : 156 ms QRS Dur : 084 ms QT Int : 410 ms P-R-T Axes : 062 024 023 degrees QTc Int : 419 ms Normal sinus rhythm Normal ECG Confirmed by ALEKSANDAR HAIDER, GOYO ([id number]), avid editor MERVIN RICARDO ([id number]) on 04/21/2019 2:05:42 PM Referred By: NEVA Confirmed By:GOYO HUERTAS MD
[2019-04-17 16:11] LABS: Bedside Glucose 100 mg/dL (70-110)
[2019-04-17] MEDS: Pravastatin 20 MG Tablet PO (21:41)
[2019-04-17 22:36] LABS: Bedside Glucose 81 mg/dL (70-110)
[2019-04-18] VITALS (11 sets, daily range): BP systolic 100–156; BP diastolic 52–79; PULSE 60–85; RESP 14–16; TEMP 36.6–37.2; O2SAT 93–96
[2019-04-18 06:15] LABS: Absolute Lymphocyte Count 2.11 X10^3/uL (0.83-4.51); Basophil# 0.07 X10^3/uL; Eosinophil# 0.16 X10^3/uL; Eosinophils% 2.3 % (0-5); Hematocrit 38.1 % (37-47); Hemoglobin 12.5 g/dL (12.0-15.0); Lymphocyte # 2.11 X10^3/ul (4.0); Lymphocyte % 30.4 % (19-41); Mean Corp Hgb Conc 32.8 g/dL (32-36); Mean Corpuscular Hgb 30.3 pg (27.0-32.0); Mean Corpuscular Volume 92.3 fL (81-99); Mean Platelet Vol. 10.1 fl (6.2-12.0); Monocyte# 0.56 X10^3/uL; Monocyte% 8.1 % (0-10); NRBC Flagged by Analyzer 0 % (0-5); Neutrophil # 4.01 X10^3/uL (2.7-7.7); Neutrophil % 57.9 % (47-70); Platelet Count 170 K/mm3 (150-450); RBC Distribution Width CV 13.3 % (11.6-14.6); RBC Distribution Width SD 45.7 fl (35.1-43.9); Red Blood Count 4.13 M/mm3 (4.2-5.4); White Blood Count 6.9 K/mm3 (4.4-11.0)
[2019-04-18] MEDS: Levothyroxine 125 MCG Tablet PO (06:29)
[2019-04-18 06:35] LABS: Anion Gap 5 (5-15); BUN 18 mg/dL (7-18); BUN/Creat Ratio 20.8 RATIO (10-20); Calcium,Total 8.9 mg/dL (8.5-10.1); Chloride 105 mmol/L (98-107); Creatinine, Serum 0.87 mg/dL (0.55-1.02); EST Glomerular Filtration Rate 70 mL/min (>60); Est Glom Filt Rate - Afr Amer 85 mL/min (>60); Estimated Creatinine Clearance 53.33 ml/min; Glucose 99 mg/dL (74-106); Potassium 4.5 mmol/L (3.5-5.1); Sodium Level 137 mmol/L (136-145)
[2019-04-18 06:36] LABS: Bedside Glucose 96 mg/dL (70-110)
[2019-04-18] MEDS: Aspirin E.C. 81 MG Tablet PO (08:54)
[2019-04-18] MEDS: Magnesium Oxide 400 MG Tablet PO (08:54)
[2019-04-18] MEDS: Losartan Potassium 100 MG Tablet PO (08:54)
[2019-04-18] MEDS: Pantoprazole Sodium 20 MG Tablet PO (08:55)
[2019-04-18] MEDS: Metoprolol(XL)Succ 25 MG Tablet PO (08:55)
[2019-04-18] MEDS: amLODIPine 2.5 MG Tablet PO (08:55)
[2019-04-18] MEDS: Enoxaparin 40 MG/0.4 ML Syringe SC (08:58)
--- NOTE | 2019-04-18 11:27 | ECHOCS_ITS ---
Version 2 Reason For Study: Palpitations Procedure This was a 2D Doppler, Color Flow transthoracic echocardiogram. The study was technically difficult. Contrast injection was performed. Exam performed in department. Left Ventricle Normal LV size. The estimated ejection fraction is 60 %. No evidence for diastolic dysfunction. No regional wall motion abnormalities noted. Right Ventricle Normal RV size. Normal systolic function. Atria Normal left atrium. Normal right atrium. No doppler evidence for ASD. Mitral Valve There is mild mitral annular calcification. There is no mitral valve stenosis. No mitral valve insufficiency. Tricuspid Valve There is no tricuspid stenosis. Trivial tricuspid valve insufficiency. Pulmonary artery systolic pressure is 35 mmHg. Aortic Valve Trisinus/trileaflet aortic valve. Aortic sclerosis, no stenosis. There is no aortic stenosis. No aortic valve insufficiency. Pulmonic Valve There is no pulmonic valvular stenosis. No pulmonic valve insufficiency. Great Vessels Normal aortic root. Pericardium/Pleural No pericardial effusion. Medication Diluted definity 3ml given slow IV push to enhance endocardial definition. MMode/2D Measurements & Calculations LVIDd: 5.2 cm IVSd: 1.1 cm LA dimension: 4.2 cm LVIDs: 2.7 cm LVPWd: 0.84 cm FS: 48.0 % LAV(MOD-bp): 52.9 ml LA A4 area: 19.1 cm2 RA A4 area: 12.0 cm2 LAV(MOD-bp) Indexed: 29.7 ml/m2 LAV(MOD-sp2): 42.1 ml LAV(MOD-sp4): 57.0 ml Time Measurements MV dec time: 0.16 sec Doppler Measurements & Calculations MV E max panchito: 90.1 cm/sec Lat Peak E' Panchito: 5.6 cm/sec Med Peak E' Panchito: 7.6 cm/sec MV A max panchito: 117.0 cm/sec E/E' lat: 16.0 E/E' med: 11.8 MV E/A: 0.77 MV V2 max: 157.9 cm/sec MV P1/2t max panchito: 111.7 cm/sec Ao V2 max: 157.0 cm/sec MV max P.0 mmHg MV P1/2t: 61.0 msec Ao max P.9 mmHg MV V2 mean: 82.7 cm/sec MV dec slope: 536.2 cm/sec2 MV mean P.4 mmHg MV V2 VTI: 27.9 cm MVA(P1/2t): 3.6 cm2 LV V1 max: 105.2 cm/sec PA V2 max: 99.2 cm/sec TR max panchito: 262.4 cm/sec LV V1 max P.4 mmHg TR max P.5 mmHg Interpretation Summary The study was technically difficult. Contrast injection was performed. The estimated ejection fraction is 60 %. No evidence for diastolic dysfunction. There is mild mitral annular calcification. The study was technically difficult. Contrast injection was performed. Ordering Physician: Sidney Slade Referring Physician: Anupam Alvarado Performed By: Thomas Palmer RCS
[2019-04-18 12:16] LABS: Bedside Glucose 104 mg/dL (70-110)
[2019-04-18] MEDS: Acetaminophen 325 MG Tablet 650 MG PO ×2 (12:20→18:43)
--- NOTE | 2019-04-18 14:00 | PN_ITS ---
Patient Problems: Active and Suspected Problems (Last Reviewed 12/23/18 @ 15:01 by Tony Kurtz) Chest pain (Acute) Reason for Visit: chest pain Subjective: Pt was experiencing CP, palpitations, heaviness on her chest SOB with exertion. No LE edema. Smokes 1/2 ppd, down from 2 ppd. + CV disease in mother, father, brother, and sister. She is craving a cigarette and reluctantly accepted a nicotine patch after initially refusing. She is very tearful when talking about how much she is craving a cigarette. Vitals/I&O's: Vital Signs Temp Pulse Resp BP Pulse Ox 98.6 F 85 16 156/79 H 96 04/18/19 08:39 04/18/19 10:58 04/18/19 08:39 04/18/19 08:55 04/18/19 08:39 Oxygen Delivery Method Room Air Weight: 165 lb 12.602 oz Body Mass Index (BMI) 29.3 Intake and Output for Last 24 Hours 04/16/19 04/17/19 04/18/19 23:59 23:59 23:59 Intake Total 1240 / 1240 880 / 880 Balance 1240 / 1240 880 / 880 General: Alert, Oriented x3, Cooperative HEENT: Atraumatic, PERRLA, EOMI, Normocephalic Neck: Supple, No JVD, Negative Carotid Bruits Lungs: Clear to auscultation, Normal air movement Cardiovascular: Regular rate, No murmurs Abdomen: Bowel Sounds Present, Soft, Non Tender Extremities: No edema, Capillary Refill Less than 3 Seconds Skin: No rashes, No breakdown Musculoskeletal: No Tenderness to Palpation of Joints or Extremities Neurological: Cranial nerves II-XII grossly intact Psych/Mental Status: Anxious, Alert and oriented to time, place, person, mood and affect Laboratory Results 04/17/19 15:47: Troponin I < 0.015 04/17/19 16:06: POC Glucose 100 04/17/19 18:23: Troponin I < 0.015 04/17/19 21:38: POC Glucose 81 04/18/19 05:25: WBC 6.9, RBC 4.13 L, Hgb 12.5, Hct 38.1, MCV 92.3, MCH 30.3, MCHC 32.8, RDW Std Deviation 45.7 H, RDW Coeff of Dagmar 13.3, Plt Count 170, MPV 10.1, Immature Gran % (Auto) 0.300, Neut % (Auto) 57.9, Lymph % (Auto) 30.4, [place] % (Auto) 8.1, Eos % (Auto) 2.3, Baso % (Auto) 1.0, Absolute Neuts (auto) 4.0, Absolute Lymphs (auto) 2.11, Nucleated RBC % 0 04/18/19 05:25: Sodium 137, Potassium 4.5, Chloride 105, Carbon Dioxide 27.0, Anion Gap 5, BUN 18, Creatinine 0.87, Estim Creat Clear Calc 53.33, Est GFR (MDRD) Af Amer 85, Est GFR (MDRD) Non-Af 70, BUN/Creatinine Ratio 20.8 H, Glucose 99, Calcium 8.9 04/18/19 06:28: POC Glucose 96 04/18/19 11:34: POC Glucose 104 Current Medications Acetaminophen (Tylenol) 650 mg PO Q6H PRN PRN PRN Reason: Pain Score 1-10/10 Last Admin: 04/18/19 12:20 Dose: 650 mg Documented by: Albuterol Sulfate (Ventolin Aerosols) 2.5 mg INHALATION Q4H PRN PRN PRN Reason: SOB/WHEEZE Amlodipine Besylate (Norvasc) 2.5 mg PO DAILY [facility] Last Admin: 04/18/19 08:55 Dose: 2.5 mg Documented by: Aspirin (Ecotrin) 81 mg PO DAILY [facility] Last Admin: 04/18/19 08:54 Dose: 81 mg Documented by: Clotrimazole (Mycelex) 10 mg MUCOUS MEM 5X/DAY [facility] Last Admin: 04/18/19 12:22 Dose: Not Given Documented by: Dextrose (D50w Syringe) 0 gm IV X1 PRN; Protocol PRN Reason: Hypoglycemia Enoxaparin Sodium (Lovenox) 40 mg SC DAILY [facility] Last Admin: 04/18/19 08:58 Dose: 40 mg Documented by: Fluticasone Propionate (Flonase Nasal [place]) 1 spray NASAL DAILY PRN PRN PRN Reason: ALLERGIES Fluticasone Propionate (Flovent Diskus 250 Mcg) 1 puff INHALATION BID [facility] Last Admin: 04/18/19 08:54 Dose: 1 puff Documented by: Glucagon () 1 mg IM .X1 PRN PRN Reason: Hypoglycemia Insulin Human Lispro (Humalog Kwikpen (Bkc)) 0 unit SC ACHS [facility]; Protocol Last Admin: 04/18/19 11:34 Dose: Not Given Documented by: Levothyroxine Sodium (Synthroid) 125 mcg PO DAILY@0600 [facility] Last Admin: 04/18/19 06:29 Dose: 125 mcg Documented by: Losartan Potassium (Cozaar) 100 mg PO DAILY [facility] Last Admin: 04/18/19 08:54 Dose: 100 mg Documented by: Magnesium Oxide (Mag-Ox 400) 400 mg PO DAILY [facility] Last Admin: 04/18/19 08:54 Dose: 400 mg Documented by: Metoprolol Succinate (Toprol Xl (Beta Chantel)) 25 mg PO DAILY [facility] Last Admin: 04/18/19 08:55 Dose: 25 mg Documented by: Nicotine (Nicoderm Cq (Pbkc)) 14 mg TRANSDERM. DAILY [facility] Last Admin: 04/18/19 12:21 Dose: 14 mg Documented by: Nitroglycerin (Nitrostat) 0.4 mg SUBLINGUAL Q5M PRN PRN Reason: CARDIAC/CHEST PAIN Ondansetron HCl (Zofran) 4 mg IV Q8H PRN PRN PRN Reason: NAUSEA/VOMITING Pantoprazole Sodium (Protonix) 20 mg PO DAILY [facility] Last Admin: 04/18/19 08:55 Dose: 20 mg Documented by: Pravastatin Sodium (Pravachol) 20 mg PO QHS [facility] Last Admin: 04/17/19 21:41 Dose: 20 mg Documented by: Sodium Chloride () 10 - 40 ml IV UD PRN PRN Reason: SALINE FLUSH STROKE Vital Signs/Narrative: Vital Signs Pulse 04/18/19 10:58 85 Medical Necessity - Tobacco Use Smoking Status: Light Smoker (<10/day) Tobacco Use: Cigarettes Assessment/Plan All Active Problems (Last Reviewed 12/23/18 @ 15:01 by Tony Kurtz) Chest pain (Acute) 1. Chest pain, heaviness, SOB with exertion, palpitations - severe cardiac family hx, heavy smoking hx, ongoing nicotine abuse, hx HTN and DMt2. EKG is normal sinus rhythm, with no events on telemetry, troponin negative x3, chest x- ray with chronic changes, no further chest pain today. Stress test is planned for tomorrow. She requests a treadmill stress test. Obtain FLP. CP may have been due to severely elevated BP at presentation. Continue aspirin, statin, metoprolol, losartan 2. Palpitations - obtain echo. Hx MVP. No further palpitations. No events on telemetry. Check TSH. 3. Hypothyroidism-continue Synthroid-check TSH 4. DMt2 - diet controlled. Check A1C 5. HTN - improved from baseline, however still poorly controlled, but fluctuant. She states her BP is very reactive with white coat syndrome. Will trend for now with prn hydralazine. Continue losartan, metoprolol 6. Nicotine abuse - severe, needs complete cessation. has cut down from 2ppd to 1/2 ppd. She has been smoking since age 12. Needs PFTs. 7. GERD - on ppi DVT ppx: Lovenox DC planning: stress in AM This patient was seen by Sidney Slade PA-C under the supervision of Doctor Winters.
[2019-04-18 15:18] LABS: Thyroid Stim Hormone (TSH) 1.11 uIU/mL (0.358-3.74)
[2019-04-18 15:50] LABS: Hemoglobin A1c 6.3 % (4.2-6.3)
[2019-04-18 17:15] LABS: Bedside Glucose 105 mg/dL (70-110)
[2019-04-18] MEDS: Pravastatin 20 MG Tablet PO (21:08)
[2019-04-18 21:16] LABS: Bedside Glucose 111 mg/dL (70-110)
--- NOTE | 2019-04-18 22:45 | NURSING ---
VS late on 04/18/2019 at 2100 d/t this nurse completing admission in another room. CMast, RN
[2019-04-19] VITALS (8 sets, daily range): BP systolic 133–160; BP diastolic 70–86; PULSE 61–84; RESP 14–18; TEMP 36.4–37; O2SAT 96–97
--- NOTE | 2019-04-19 05:55 | EKG12_ITS ---
Test Reason : AM EKG Blood Pressure : / mmHG Vent. Rate : 085 BPM Atrial Rate : 085 BPM P-R Int : 150 ms QRS Dur : 078 ms QT Int : 366 ms P-R-T Axes : 063 037 052 degrees QTc Int : 435 ms Normal sinus rhythm Normal ECG When compared with ECG of 17-APR-2019 15:12, MANUAL COMPARISON REQUIRED, DATA IS UNCONFIRMED Confirmed by CYNDY VALLE ([id number]), purchasing expeditor STEPHANI POWELL ([id number]) on 04/21/2019 3:14:30 PM Referred By: FRANCISCO Confirmed By:CYNDY VALLE
[2019-04-19] MEDS: Aspirin E.C. 81 MG Tablet PO (06:12)
[2019-04-19] MEDS: Levothyroxine 125 MCG Tablet PO (06:13)
[2019-04-19] MEDS: Losartan Potassium 100 MG Tablet PO (06:13)
[2019-04-19 06:30] LABS: Bedside Glucose 97 mg/dL (70-110)
[2019-04-19 06:57] LABS: Cholesterol 250 mg/dL (200); High Density Lipoprotein 74 mg/dL; Triglycerides 109 mg/dL; Very Low Density Lipoprotein 22 mg/dL (5-40)
[2019-04-19] MEDS: amLODIPine 2.5 MG Tablet PO (09:17)
[2019-04-19] MEDS: Pantoprazole Sodium 20 MG Tablet PO (09:17)
[2019-04-19] MEDS: Magnesium Oxide 400 MG Tablet PO (09:17)
[2019-04-19] MEDS: Metoprolol(XL)Succ 25 MG Tablet PO (09:18)
--- NOTE | 2019-04-19 10:45 | CASEMGMT ---
Case Management Progress Note: This chief writer went to patient bedside and introduced self and role. Explained/reviewed TORRES form with patient in regards to current treatment this hospital admission. Informed Outpatient billing is determined by her insurance policy and continual review is conducted to determine any changes in condition that may warrant Inpatient stay. All questions addressed. Acknowledges and states understanding, TORRES form signed and placed in patient hard chart. Patient provided a copy of TORRES. [place] RNCM
[2019-04-19 11:36] LABS: Bedside Glucose 95 mg/dL (70-110)
--- NOTE | 2019-04-19 12:47 | STRESSREP_ITS ---
Stress Test Report Date: 04/19/2019 Procedure: Exercise tolerance test/imaging study Indications: Chest pain Consent: Per the patient Procedure: The patient exercised on a Abad protocol for 5 minutes and 15 seconds achieving a peak heart rate of 148 bpm (95 % predicted maximal heart rate) with a peak blood pressure 200/60 mmHg and a peak MET capacity of 7 METs. The baseline ECG demonstrated normal sinus rhythm. The peak exercise ECG demonstrated sinus tachycardia with no significant ischemic changes. EKG during recovery revealed no significant ischemic changes [There were no cardiac dysrhythmias pretest, during exercise, or recovery]. The functional capacity was considered normal for age. There was [no complaint of chest discomfort during exercise or recovery]. The examination was discontinued secondary to shortness of breath. Impression: 1. Technically adequate (percent predicted maximal heart rate greater than 85%) exercise tolerance test 2. Stress test is negative for exercise-induced EKG changes of ischemia 3. The test test is negative for exercise-induced chest pain 4. Functional capacity is normal for age 5. Nuclear images pending Myocardial perfusion imaging study: Technique: The patient was injected with 11.8 mCi of technetium 99m Cardiolite and subsequently rest SPECT Cardiolite nuclear imaging was obtained in the horizontal long, vertical long, and short axis views. The patient exercised on a Abad protocol. Please see above for details. The patient was injected with 33.4 mCi of technetium 99m Cardiolite and subsequently stress SPECT Cardiolite nuclear imaging was obtained in the horizontal long, vertical long, and short axis views. A gated Cardiolite study at peak stress was obtained. Interpretation: Rest and stress SPECT Cardiolite nuclear imaging status post realignment, normalization, and attenuation correction, demonstrates normal myocardial radioisotope uptake. The gated Cardiolite study demonstrates no significant regional wall motion abnormalities. The reported LVEF is greater than 70 %. Impression: 1. There is no evidence of significant ischemia or infarction. 2. The gated Cardiolite study reports an LVEF of greater than 70 %. This note was generated with Mashed Pixelation software. It may contain incorrect words, spelling, and punctuation that were not noted in checking the note before signing.
--- NOTE | 2019-04-19 13:50 | NURSING ---
Report received from Chula Moeller RN. This RN taking over patient care at this time.
[2019-04-19 15:26] LABS: Bedside Glucose 114 mg/dL (70-110)
--- NOTE | 2019-04-19 15:46 | DCINST_ITS ---
- Discharge Diagnoses Current Active Problems: Current Active and Chronic Problems (Last Reviewed 12/23/18 @ 15:01 by Tony Kurtz) Chest pain (Acute) You will use the following diet at home:: Cardiac Your food should be the consistency of: Regular Your liquids should be the consistency of: Regular/Thin Discharge Activity: Return to Normal Activity Call your doctor if you observe: Chest pain Additional Instructions: No smoking. Allergies/Adverse Reactions: Allergies cephalexin monohydrate [From Keflex] Allergy (Verified 11/11/18 10:35) Hives escitalopram Allergy (Verified 11/11/18 10:35) Other SUICIDAL IDEATIONS amoxicillin Adverse Reaction (Verified 11/11/18 10:35) Upset Stomach budesonide [From Symbicort] Adverse Reaction (Verified 11/11/18 10:35) Other LOSS OF URINATION bupropion Adverse Reaction (Verified 11/11/18 10:35) Other cyclosporine Adverse Reaction (Verified 11/11/18 10:35) Nausea formoterol [From Symbicort] Adverse Reaction (Verified 11/11/18 10:35) Other LOSS OF URINATION ibandronate sodium Adverse Reaction (Verified 11/11/18 10:35) Pain in joints naproxen Adverse Reaction (Verified 11/11/18 10:35) Upset Stomach NSAIDS (Non-Steroidal Anti-Inflamma Adverse Reaction (Verified 11/11/18 10:35) Rash paroxetine Adverse Reaction (Verified 11/11/18 10:35) Other tiotropium [From Spiriva with HandiHaler] Adverse Reaction (Verified 11/11/18 10:35) Other LOSS OF URINATION varenicline Adverse Reaction (Verified 11/11/18 10:35) Other Medications to take at Discharge Albuterol Inhaler [Ventolin Hfa] 1 - 2 puff INHALATION Q4H PRN PRN 09/27/15 Aspirin [Aspirin, Baby] 81 mg PO DAILY@0800 09/27/15 Calcium Phosphate Trib/Vit D3 [Citracal + D3 Gummies] 1 ea PO DAILY 09/27/15 Cholecalciferol (Vitamin D3) [Decara] 50,000 unit PO QMONTH 09/27/15 Levothyroxine [Synthroid] 125 mcg PO DAILY 09/27/15 Losartan Potassium [Cozaar] 100 mg PO DAILY 09/27/15 Magnesium Oxide [Mag-Ox 400] 400 mg PO DAILY 09/27/15 Metoprolol(XL)Succ [Toprol Xl (Beta Chantel)] 25 mg PO DAILY 09/27/15 [place]-3 Fatty Acids/Fish Oil [[place] 3 1,000 mg Softgel] 3,400 mg PO DAILY 06/04/17 Pravastatin [Pravachol] 20 mg PO QHS 06/04/17 Diclofenac Sodium [Pennsaid] 1 applicatio TP PRN PRN 06/09/17 Metronidazole [Metrogel Topical] 1 applic TOPICAL PRN PRN 06/09/17 Polyvinyl Alcohol [Artificial Tears] 1 drp EACH EYE DAILY PRN 06/09/17 Fluticasone 0.05% [Flonase Nasal [place]] 1 spray NASAL PRN PRN 11/10/18 Fluticasone Prop 250 mcg [Flovent Diskus 250 mcg] 1 puff INHALATION BID 11/10/18 Amlodipine [Norvasc] 2.5 mg PO DAILY 04/17/19 Omeprazole [Prilosec] 20 mg PO DAILY 04/17/19 Primary Care Physician: Anupam Alvarado MD [Primary Care Provider] - Please follow up with your Primary Care Physician in: 1-2 weeks Test Results: Test results from this visit will be discussed in further detail at your follow- up appointment, if applicable. Proposed Discharge Date: 04/19/19
--- NOTE | 2019-04-19 15:48 | DS.PCM_ITS ---
Discharge Date and Diagnosis - Problem List Patient Problems: Active and Suspected Problems (Last Reviewed 12/23/18 @ 15:01 by Tony Kurtz) Chest pain (Acute) Date of Admission: 04/17/19 Date of Discharge: 04/19/19 - Primary Discharge Diagnosis Active and Suspected Problems (Last Reviewed 12/23/18 @ 15:01 by Tony Kurtz) Chest pain - musculoskeletal vs hypertension Palpitations MVP HTN Hypothyroidism DMt2, diet controlled HTN Nicotine abuse GERD - Secondary Discharge Diagnosis Chronic Problems (Last Reviewed 12/23/18 @ 15:01 by Tony Kurtz) Rosacea (Chronic) Arthritis (Chronic) Vitamin D deficiency (Chronic) Latesha's disease (Chronic) Hypothyroidism (Chronic) Diabetes (Chronic) Hypertension (Chronic) Asthma (Chronic) Hospital Course and Treatment Imaging Results: RAD/Chest PA and Lateral IMPRESSION: 1. No acute cardiopulmonary process. 2. Stable chronic changes, as above. Echo: Interpretation Summary The study was technically difficult. Contrast injection was performed. The estimated ejection fraction is 60 %. No evidence for diastolic dysfunction. There is mild mitral annular calcification. The study was technically difficult. Contrast injection was performed. Stress test: Interpretation: Rest and stress SPECT Cardiolite nuclear imaging status post realignment, normalization, and attenuation correction, demonstrates normal myocardial radioisotope uptake. The gated Cardiolite study demonstrates no significant regional wall motion abnormalities. The reported LVEF is greater than 70 %. Impression: 1. There is no evidence of significant ischemia or infarction. 2. The gated Cardiolite study reports an LVEF of greater than 70 %. Operations: None Procedures: 2-D Echocardiogram, Stress test Summary of Care Provided: Hospital course: The patient is a 64 year old F past medical history of diet-controlled diabetes, mitral valve prolapse, hypertension, hyperlipidemia, heavy smoking history, hypothyroidism, who presented to the emergency room with complaints of chest pain. This began the day of presentation when the patient was checking her blood pressure and she noted it was 190 systolic. She described the feeling as pressure-like and was also having associated palpitations. She came to the emergency room and had an EKG that was negative, troponin negative, chest x-ray negative. Blood pressure was elevated at 182/99, 190/91. This trended down without any acute intervention. She was admitted to the PCU and placed on telemetry. She had no events on telemetry. An echocardiogram was obtained with her reports of palpitations and history of MVP. Echo showed normal LV size and function, EF 60%, no diastolic dysfunction, normal RV size and systolic function. Mitral valve had mild annular calcification, PASP was 35 mmHg with trivial tricuspid valve insufficiency. She went for stress test the following day which was negative. Troponin was negative x3. Without any extra medications her blood pressure trended down, is mildly elevated at time of discharge 147/73. She reported that she had severe whitecoat hypertension. No changes were made at this time. Possible letter chest pain was related to her hypertension or musculoskeletal pain. I strongly advised her to discontinue smoking. We also checked a TSH with her palpitations that was normal. With her reported diet-controlled diabetes we assessed her A1c was at 6.3, she should continue dietary glycemic control. I recommend she follow-up with her PCP in 1 to 2 weeks. She was discharged home in stable condition. This patient was seen by Sidney Slade PA-C under the supervision of Doctor Ana. [] Patient Problems: Active and Suspected Problems (Last Reviewed 12/23/18 @ 15:01 by Tony Kurtz) Chest pain (Acute) - Physical Exam Vitals/I&O's: Vital Signs Temp Pulse Resp BP Pulse Ox 97.5 F L 69 14 147/73 H 96 04/19/19 12:15 04/19/19 15:04 04/19/19 12:15 04/19/19 12:15 04/19/19 12:15 Oxygen Delivery Method Room Air Weight: 165 lb 12.602 oz Body Mass Index (BMI) 29.3 Intake and Output for Last 24 Hours 04/17/19 04/18/19 04/19/19 23:59 23:59 23:59 Intake Total 1240 / 1240 2360 / 2360 480 / 480 Balance 1240 / 1240 2360 / 2360 480 / 480 General: Alert, Oriented x3, Cooperative HEENT: Atraumatic, PERRLA, EOMI, Normocephalic Neck: Supple, No JVD, Negative Carotid Bruits Lungs: Clear to auscultation, Normal air movement Cardiovascular: Regular rate, No murmurs Abdomen: Bowel Sounds Present, Soft, Non Tender Extremities: No edema, Capillary Refill Less than 3 Seconds Skin: No rashes, No breakdown Musculoskeletal: No Tenderness to Palpation of Joints or Extremities Neurological: Cranial nerves II-XII grossly intact Psych/Mental Status: Normal Affect, Appropriate Laboratory Results 04/18/19 05:25: Hemoglobin A1c 6.3 04/18/19 17:04: POC Glucose 105 04/18/19 21:03: POC Glucose 111 H 04/19/19 06:15: POC Glucose 97 04/19/19 06:17: Triglycerides 109, Cholesterol 250 H, LDL Cholesterol 154 H, VLDL Cholesterol 22, HDL Cholesterol 74 04/19/19 11:29: POC Glucose 95 04/19/19 15:21: POC Glucose 114 H Current Medications Acetaminophen (Tylenol) 650 mg PO Q6H PRN PRN PRN Reason: Pain Score 1-12/03 Last Admin: 04/18/19 18:43 Dose: 650 mg Documented by: Albuterol Sulfate (Ventolin Aerosols) 2.5 mg INHALATION Q4H PRN PRN PRN Reason: SOB/WHEEZE Amlodipine Besylate (Norvasc) 2.5 mg PO DAILY [facility] Last Admin: 04/19/19 09:17 Dose: 2.5 mg Documented by: Aspirin (Ecotrin) 81 mg PO DAILY [facility] Last Admin: 04/19/19 06:12 Dose: 81 mg Documented by: Dextrose (D50w Syringe) 0 gm IV X1 PRN; Protocol PRN Reason: Hypoglycemia Enoxaparin Sodium (Lovenox) 40 mg SC DAILY [facility] Last Admin: 04/19/19 13:49 Dose: Not Given Documented by: Fluticasone Propionate (Flonase Nasal [place]) 1 spray NASAL DAILY PRN PRN PRN Reason: ALLERGIES Fluticasone Propionate (Flovent Diskus 250 Mcg) 1 puff INHALATION BID [facility] Last Admin: 04/19/19 09:16 Dose: 1 puff Documented by: Glucagon () 1 mg IM .X1 PRN PRN Reason: Hypoglycemia Insulin Human Lispro (Humalog Kwikpen (Bkc)) 0 unit SC [facility]; Protocol Last Admin: 04/19/19 11:57 Dose: Not Given Documented by: Levothyroxine Sodium (Synthroid) 125 mcg PO DAILY@0600 [facility] Last Admin: 04/19/19 06:13 Dose: 125 mcg Documented by: Losartan Potassium (Cozaar) 100 mg PO DAILY [facility] Last Admin: 04/19/19 06:13 Dose: 100 mg Documented by: Magnesium Oxide (Mag-Ox 400) 400 mg PO DAILY [facility] Last Admin: 04/19/19 09:17 Dose: 400 mg Documented by: Metoprolol Succinate (Toprol Xl (Beta Chantel)) 25 mg PO DAILY [facility] Last Admin: 04/19/19 09:18 Dose: 25 mg Documented by: Nicotine (Nicoderm Cq (Pbkc)) 14 mg TRANSDERM. DAILY [facility] Last Admin: 04/19/19 09:17 Dose: 14 mg Documented by: Nitroglycerin (Nitrostat) 0.4 mg SUBLINGUAL Q5M PRN PRN Reason: CARDIAC/CHEST PAIN Ondansetron HCl (Zofran) 4 mg IV Q8H PRN PRN PRN Reason: NAUSEA/VOMITING Pantoprazole Sodium (Protonix) 20 mg PO DAILY [facility] Last Admin: 04/19/19 09:17 Dose: 20 mg Documented by: Pravastatin Sodium (Pravachol) 20 mg PO QHS [facility] Last Admin: 04/18/19 21:08 Dose: 20 mg Documented by: Sodium Chloride () 10 - 40 ml IV UD PRN PRN Reason: SALINE FLUSH Discharge Diet: Low fat/ Low Cholesterol, 1800 Calorie Control Diet, 2000 mg Sodium Diet Discharge Activity: Return to Normal Activity Call your doctor if you observe: Chest pain Home Medications: Medications to take at Discharge Albuterol Inhaler [Ventolin Hfa] 1 - 2 puff INHALATION Q4H PRN PRN 09/27/15 Aspirin [Aspirin, Baby] 81 mg PO DAILY@0800 09/27/15 Calcium Phosphate Trib/Vit D3 [Citracal + D3 Gummies] 1 ea PO DAILY 09/27/15 Cholecalciferol (Vitamin D3) [Decara] 50,000 unit PO QMONTH 09/27/15 Levothyroxine [Synthroid] 125 mcg PO DAILY 09/27/15 Losartan Potassium [Cozaar] 100 mg PO DAILY 09/27/15 Magnesium Oxide [Mag-Ox 400] 400 mg PO DAILY 09/27/15 Metoprolol(XL)Succ [Toprol Xl (Beta Chantel)] 25 mg PO DAILY 09/27/15 [place]-3 Fatty Acids/Fish Oil [[place] 3 1,000 mg Softgel] 3,400 mg PO DAILY 06/04/17 Pravastatin [Pravachol] 20 mg PO QHS 06/04/17 Diclofenac Sodium [Pennsaid] 1 applicatio TP PRN PRN 06/09/17 Metronidazole [Metrogel Topical] 1 applic TOPICAL PRN PRN 06/09/17 Polyvinyl Alcohol [Artificial Tears] 1 drp EACH EYE DAILY PRN 06/09/17 Fluticasone 0.05% [Flonase Nasal [place]] 1 spray NASAL PRN PRN 11/10/18 Fluticasone Prop 250 mcg [Flovent Diskus 250 mcg] 1 puff INHALATION BID 11/10/18 Amlodipine [Norvasc] 2.5 mg PO DAILY 04/17/19 Omeprazole [Prilosec] 20 mg PO DAILY 04/17/19 Primary Care Physician: Anupam Alvarado MD [Primary Care Provider] - Please follow up with your Primary Care Physician in: 1-2 weeks Disposition: Home Minutes spent on discharge:: 35 Patient Condition:: Stable Medical Necessity - Tobacco Use Smoking Status: Light Smoker (<10/day) Tobacco Use: Cigarettes Meaningful Use Info Meaningful Use Diagnoses (Choose all that apply): None applicable
== END 2019-04-19 15:46 | disposition home or self-care (01) ==
LOC: ED 13:49 → PCU 14:18
PROVIDERS: Internal Medicine; Physician Assistant; Admitting Provider Student in an Organized Health Care Education/Training Program; Emergency Provider Emergency Medicine; PCP Family Medicine; Visit Provider Internal Medicine
DX: R07.89 Other chest pain (principal); R42 Dizziness and giddiness; R00.2 Palpitations; R00.0 Tachycardia, unspecified; E78.5 Hyperlipidemia, unspecified; E11.9 Type 2 diabetes mellitus without complications; I10 Essential (primary) hypertension; J45.909 Unspecified asthma, uncomplicated; E06.3 Autoimmune thyroiditis; E55.9 Vitamin D deficiency, unspecified; M19.90 Unspecified osteoarthritis, unspecified site; L71.9 Rosacea, unspecified; K21.9 Gastro-esophageal reflux disease without esophagitis; F17.210 Nicotine dependence, cigarettes, uncomplicated; I25.10 Atherosclerotic heart disease of native coronary artery without angina pectoris; Z79.899 Other long term (current) drug therapy; Z79.82 Long term (current) use of aspirin; Z79.51 Long term (current) use of inhaled steroids
CPT/HCPCS: 36415; 71046; 78452; 80048; 80061; 82962; 83036; 84443; 84484; 85025; 93005; 93017; 93306; 96372; 99218; 99285; 99406; A9500; Q9957; A4216; C8929; G0378; J2785

== ENCOUNTER 2020-05-29 13:30 | Outpatient (RCR) | payer OTHER, MEDICARE, SELFPAY ==
[2019-04-17 15:22] VITALS: BMI 29.3
--- NOTE | 2020-04-05 14:31 | HP.PTEVAL ---
Patient's Visit Information MAXIMO WALDEN is a 65 year old F referred to Physical Therapy by Dr. Olman Eubanks DPM with a diagnosis of Achilles Tendionitis, Plantar Fascitis. Date of Evaluation: 04/05/20 Physical Therapist: Debi Miller DPT - Visit Plan Frequency: 2x /Week Duration: 4 Weeks Plan: Pt to report back to surgeon about knee, will treat inflammation in ankle in order to improve function and decrease pain (US, manual, flexibilty, hip and ankle strengthening). caution of knee (stress fx) - Subjective In early decemeber: R achilles, redness, swelling, pain - wore ankle high boots all weekend and might have irritated it- does have bone spur on R heel. walking boot- since decemeber (wore for 2 months, now just wears if she needs it), used walker for a month. denies numbeness or tingling. Pain: currently 0/10- only had shoes for 30 mins. can tolerate closed back shoe for 2 hours, will feel pain in plantar fascia and on lateral aspect of foot and posterior. worst: 4/10- when on feet all day running errands. best: will wear walking boot for comfort around the house and when NWB. sleep: used to wake her up at night but does not anymore, will use night splint but only a couple times a week. Irritating d/t stretching sometimes take it off in the night. occupation: does not work outside of home. home setup: , mutli floor home with steps- not problems with steps. Meds: tylenol, mat and ice. PMHx: calcium deposits and tendons are thickens, aggressive arthrititis, high BP (on meds). in knee unloading brace since september- knows gait is off-- stress fx in femoral condyle, severe stress reaction and bone marrow edema- is in brace for a year at least. orthotics: with gel heel pad and supam (full foam layers) - is wearing stiffer tennis shoe and primarily wears them. goals: to have more ROM, keep it loose and functional, wear a shoe longer than a couple hours. has been doing seated elliptical at home. - Objective Posture: FH, RS. Gait: decreased stance time, poor heel/toe pattern- does not use an AD but does have laboratory secretary brace on right knee. Stairs: step to pattern with single HR but asc and desc. HR/TR: able with pain on R with HR. SLS: 2 seconds on R leg, 5 seconds on L. ROM DF: 5 PF: 15. Strength: ankle: DF/PF 4/5, hip and knee were not tested d/t comordity precaution. Flexbility: gastroc: severe. Palpation: tender along achilles and plantar surface of the foot. - Goals Goal 1:: Pt will be I with HEP and progression Goal Time Frame: 4-6 Weeks Goal 2:: Pt will report 0/10 for 1 week in order to promote indepence with ADLs. Goal Time Frame: 4-6 Weeks Goal 3:: Pt will demonstrate increased flexibility to 10 degrees of DF in order to improve functional mobility Goal Time Frame: 4-6 Weeks - Rehabilitation Potential Physical Therapy Diagnosis: Pt presents with pain, decreased ROM, flexibilty and poor gait mechanics impacting ability to IADLs. Rehabilitation Potential: Good - Anticipated Interventions Patient/Client Instruction: Educate patient on: Plan of Care For the Purpose of:: To improve muscle performance and motor function Therapeutic Exercise to Include: Strength training, Endurance training, Balance training, Coordination, Agility training, Body mechanics, Postural training, Flexibilty training, Gait and locomotor training, Passive ROM, Active ROM Cryotherapy (ice pack, ice massage): Yes Thermo therapy (hot pack): Yes Ultrasound (thermal/non thermal): Yes Thank you for the opportunity to evaluate your patient. For Medicare and Medicare HMO plans, please review the plan of care and approve it. It will need to be FAXED BACK to us at [phone] for Medicare purposes. For Medicare only, by signing this I certify the plan of care. Please let me know if there are questions or concerns regarding this plan of care. Physician Signature: Date:
--- NOTE | 2020-05-04 16:20 | HP.PTREVAL ---
Dr. Olman Eubanks, DPM, It has been my pleasure to treat MAXIMO WALDEN over the last 8 visits for Achilles Tendionitis, Plantar Fascitis. Please see the progress note below for an update on the physical therapy plan of care! Subjective: Pt likes the pool. Pt reporst that the foot is good. She aggrivated the knee a little bit from the pool but has improved 4-5/10. Ankle is doing good. Pt has had no pain for a week in the ankle- after being in the pool. Pt has not needed the boot at night. Her main problem is the knee. Pt has some pain on the heel occasionally. Objective/Function: Posture: FH, RS. Gait: improved heel/toe pattern, decreased stride length, (mindful of posture and pelvic alginment per GUEST SERVICES ASSISTANT)- does not use an AD but does have roll repairer brace on right knee. Stairs: recip with single HR but asc and desc. increase R hip pain ascend. HR/TR: able with pain/stretch on R with HR. SLS: 10 seconds on R leg, 10 seconds on L. with BUE. ROM DF: 10 PF: 35. Strength: ankle: DF/PF 4+/5, hip and knee were not tested d/t comordity precaution. Flexbility: gastroc: moderate. Palpation: denies tenderness. 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 Will reevaluate and do I HEP. *f/u with supervising PT next appt. Would recommend continued AT at this time d/t progress made, however, room for greater improvement. *Add rest of DLP tasks next and balance tasks. *Progress gastroc stretch to HEP. *Progress to I pool program with [employer] membership. Pt to report back to surgeon about knee, will treat inflammation in ankle in order to improve function and decrease pain (US, manual, flexibilty, hip and ankle strengthening). caution of knee (stress fx). Pt to partipcate in pool therapy to increase strength with decreased weightbearing. Goals Goal 1:: Pt will be I with HEP and progression Goal Time Frame: 4-6 Weeks Goal Progress: Progressing Goal 2:: Pt will report 0/10 for 1 week in order to promote indepence with ADLs. Goal Time Frame: 4-6 Weeks Goal Progress: Goal Met Goal 3:: Pt will demonstrate increased flexibility to 10 degrees of DF in order to improve functional mobility Goal Time Frame: 4-6 Weeks Goal Progress: Goal Met Anticipated Interventions Patient/Client Instruction: Educate patient on: Plan of Care For the Purpose of:: To improve muscle performance and motor function Therapeutic Exercise to Include: Strength training, Endurance training, Balance training, Coordination, Agility training, Body mechanics, Postural training, Flexibilty training, Gait and locomotor training, Passive ROM, Active ROM Cryotherapy (ice pack, ice massage): Yes Thermo therapy (hot pack): Yes Ultrasound (thermal/non thermal): Yes Please do not hesitate to contact me at [phone] by phone or if you have questions or concerns regarding this new plan of care! Sincerely, MARLO AburtoT
--- NOTE | 2020-05-29 13:55 | HP.PTDCSUM ---
It has been my pleasure to treat MAXIMO WALDEN referred by Dr. Olman Eubanks DPM, with the diagnosis of Achilles Tendionitis, Plantar Fascitis for a total of 10 visit(s). Discharge Date: Please see the following information for a summary of their discharge status. Subjective: She is wearing a heart monitor for arrhythmias. She has to wear it for 2 weeks. She is looking to find a live source operator. She has little pain in the ankle but does have a weird twinge every once in awhile. As long as she stretches and rolls out she is good to go. RLE Pain Intensity (Out of 10): 4 Lumbar Spine Pain Intensity (Out of 10): 0 % Improvement: 100 Objective/Function: Posture: FH, RS. Gait: improved heel/toe pattern, decreased stride length, (mindful of posture and pelvic alginment per BRICK PICKER)- does not use an AD but does have apartment manager brace on right knee. Stairs: recip with single HR HR/TR: able with pain/stretch on R with HR. SLS: 10 seconds on R leg, 10 seconds on L. with BUE. ROM DF: 10 PF: 35. Strength: ankle: DF/PF 4+/5. Flexbility: gastroc: moderate. Palpation: denies tenderness. Goal 1:: Pt will be I with HEP and progression Goal Progress: Progressing Goal 2:: Pt will report 0/10 for 1 week in order to promote indepence with ADLs. Goal Progress: Goal Met Goal 3:: Pt will demonstrate increased flexibility to 10 degrees of DF in order to improve functional mobility Goal Progress: Goal Met Plan: Patient plans to continue her exercises at home- (stretching, strength and core work). She is doing a seated ellip at home 20 min a day. If there are questions or concerns regarding this patient's physical therapy, please feel free to call me at [phone]. Thank you for the referral of this patient. Sincerely, Debi Miller DPT
== END 2020-05-29 14:11 | disposition home or self-care (01) ==
LOC: PT 13:30
PROVIDERS: PCP Family Medicine; Referring Provider Podiatrist; Visit Provider Podiatrist
DX: M84.351D Stress fracture, right femur, subsequent encounter for fracture with routine healing (principal); M17.11 Unilateral primary osteoarthritis, right knee; M21.161 Varus deformity, not elsewhere classified, right knee; M25.561 Pain in right knee; M25.571 Pain in right ankle and joints of right foot; Z96.641 Presence of right artificial hip joint
CPT/HCPCS: 97035; 97110; 97113; 97162; 97164

== ENCOUNTER → 2020-08-09 13:56 | Outpatient (CLI) | payer OTHER, MEDICARE, SELFPAY ==
[2020-08-02 13:29] VITALS: BMI 30.5
--- NOTE | 2020-08-09 13:59 | ECHOD_ITS ---
Reason For Study: AFIB/FLUTTER Procedure This was a 2D Doppler, Color Flow transthoracic echocardiogram. Exam performed in department. Left Ventricle Normal LV size. Left ventricular systolic function is normal. Stage 1 diastolic dysfunction. The estimated ejection fraction is 55 %. No regional wall motion abnormalities noted. Right Ventricle Normal RV size. Normal systolic function. Atria Normal left atrium. Normal right atrium. Mitral Valve Normal mitral valve. Tricuspid Valve Normal tricuspid valve. Mild tricuspid valve insufficiency. Pulmonary artery systolic pressure is 27 mmHg. Aortic Valve The aortic valve is not well visualized. Pulmonic Valve The pulmonic valve is not well visualized. Great Vessels Normal aortic root. The pulmonary artery is normal size. Normal inferior vena cava. Pericardium/Pleural No pericardial effusion. MMode/2D Measurements & Calculations LVIDd: 5.0 cm IVSd: 1.00 cm Ao root diam: 2.8 cm LVIDs: 3.3 cm LVPWd: 1.00 cm RVDd: 2.4 cm FS: 35.1 % LAV(MOD-bp): 58.2 ml LVAd ap4: 28.6 cm2 LVAd ap2: 23.7 cm2 LAV(MOD-bp) Indexed: 31.6 ml/m2 LVLd ap4: 7.1 cm LVLd ap2: 7.2 cm LAV(MOD-sp2): 55.0 ml EDV(MOD-sp4): 101.5 ml EDV(MOD-sp2): 64.8 ml LAV(MOD-sp4): 54.9 ml EDV(sp4-el): 98.1 ml EDV(sp2-el): 66.4 ml LVAs ap4: 18.9 cm2 LVAs ap2: 15.0 cm2 LVLs ap4: 6.3 cm LVLs ap2: 6.4 cm ESV(MOD-sp4): 50.4 ml ESV(MOD-sp2): 30.4 ml ESV(sp4-el): 48.2 ml ESV(sp2-el): 29.9 ml EF(MOD-sp4): 50.3 % EF(MOD-sp2): 53.0 % EF(sp4-el): 50.8 % SV(MOD-sp4): 51.1 ml SV(MOD-sp2): 34.3 ml SV(sp4-el): 49.8 ml LA dimension(2D): 4.2 cm LA A4 area: 18.9 cm2 RA A4 area: 12.7 cm2 Time Measurements MV dec time: 0.14 sec Doppler Measurements & Calculations MV E max panchito: 90.7 cm/sec Lat Peak E' Panchito: 5.9 cm/sec Med Peak E' Panchito: 5.6 cm/sec MV A max panchito: 122.7 cm/sec E/E' lat: 15.4 E/E' med: 16.2 MV E/A: 0.74 Ao V2 max: 136.1 cm/sec LV V1 max: 82.2 cm/sec PA V2 max: 83.5 cm/sec Ao max P.4 mmHg LV V1 max P.7 mmHg TR max panchito: 243.8 cm/sec TR max P.9 mmHg ECHO/Echo Complete Interpretation Summary Normal LV size. Left ventricular systolic function is normal. Stage 1 diastolic dysfunction. Pulmonary artery systolic pressure is 27 mmHg. The estimated ejection fraction is 55 %. Ordering Physician: John Evans Referring Physician: Anupam Alvarado Performed By: Brittney Zimmerman, SADIE, RVT
== END ==
PROVIDERS: PCP Family Medicine; Referring Provider Internal Medicine Cardiovascular Disease; Visit Provider Internal Medicine Cardiovascular Disease
DX: I47.1 Supraventricular tachycardia (principal)
CPT/HCPCS: 93306

== ENCOUNTER 2020-08-15 21:50 | Emergency (ER) | payer OTHER, MEDICARE, SELFPAY ==
[2020-08-02 13:29] VITALS: BMI 30.5
[2020-08-15 21:51] VITALS: BP 167/78; PULSE 69; RESP 22; TEMP 36.1; O2SAT 96; BMI 30.9
--- NOTE | 2020-08-15 22:06 | CT_ITS ---
STUDY: CT ABDOMEN AND PELVIS WITH CONTRAST REASON FOR EXAM: Female, 65 years old. trauma RADIATION DOSAGE (If Supplied By Facility): CTDIvol = ( 17.46 ) mGy, DLP = ( 1417.70 ) mGycm TECHNIQUE: Transaxial images were obtained from the dome of the diaphragm to the symphysis pubis without oral contrast. IV 100mL Isovue-300 was administered. Sagittal and coronal images were reconstructed. Individualized dose optimization techniques were used for this CT. COMPARISON: None. FINDINGS: The visualized lung bases are unremarkable. The visualized portions of the heart are within normal limits. Normal liver. Normal gallbladder and extrahepatic biliary system. Normal spleen. Normal pancreas. Normal bilateral adrenal glands. Normal right kidney. Normal left kidney. Normal visualized stomach. Normal small intestine. There are multiple colonic diverticula consistent with diverticulosis. The appendix is visualized and appears normal. There is diffuse atherosclerotic calcification of the abdominal aorta, without a demonstrated aneurysm. Normal inferior vena cava. Normal retroperitoneum. Normal urinary bladder. Status post hysterectomy. Normal abdominal wall. No acute traumatic osseous findings. Right hip arthroplasty is noted. Hardware appears intact. CT/Abdomen/Pelvis W IV Cont ONLY IMPRESSION: No acute traumatic findings. Chronic changes as above. Electronically Signed: Inderjit Jj DO at 0:07 EDT Tel , Service support ,
--- NOTE | 2020-08-15 22:06 | CT_ITS ---
STUDY: CT CHEST WITH CONTRAST REASON FOR EXAM: Female, 65 years old. trauma RADIATION DOSAGE (If Supplied By Facility): CTDIvol = ( 17.46 ) mGy, DLP = ( 1417.70 ) mGycm TECHNIQUE: Transaxial imaging was performed following intravenous administration of IV 100mL Isovue-300. Individualized dose optimization techniques were used for this CT. COMPARISON: None. FINDINGS: There is hyperinflation of the lungs consistent with chronic obstructive lung disease (COPD). Moderate emphysema. No acute airspace disease, consolidation or effusion. No suspicious masses or nodules. There is mild cardiac enlargement. Normal mediastinum. Normal hilar regions. Normal enhanced pulmonary arteries. Normal aorta arch and descending thoracic aorta. There are multi-level degenerative changes of the thoracic spine. There is no demonstrated abnormality of the visualized upper abdomen. CT/Chest WITH Contrast IMPRESSION: No acute traumatic findings. COPD and emphysema. No acute airspace disease Electronically Signed: Inderjit Jj DO at 0:05 EDT Tel , Service support ,
[2020-08-15] MEDS: Ondansetron 4 MG/2 ML Vial IV (22:24)
[2020-08-15] MEDS: 0.9% Normal Saline 1,000 ML 1000 ML IV (22:24)
[2020-08-15] MEDS: Morphine 4 MG/ML Syringe IV (22:26)
[2020-08-15 22:51] LABS: Anion Gap 7 (5-15); BUN 22 mg/dL (7-18); BUN/Creat Ratio 25.1 RATIO (10-20); Calcium,Total 9.1 mg/dL (8.5-10.1); Chloride 104 mmol/L (98-107); Creatinine, Serum 0.88 mg/dL (0.55-1.02); EST Glomerular Filtration Rate 69 mL/min (>60); Est Glom Filt Rate - Afr Amer 83 mL/min (>60); Estimated Creatinine Clearance 52.02 ml/min; Glucose 101 mg/dL (74-106); Potassium 3.9 mmol/L (3.5-5.1); Sodium Level 138 mmol/L (136-145)
--- NOTE | 2020-08-16 00:13 | ED.VIS.FALL ---
HPI HPI - Fall History of Present Illness Chief Complaint: Fall Informant: patient Narrative Narrative: 65-year-old female presents with chest and abdominal pain after falling approximately 7 hours ago. States that she tripped over a crack in the sidewalk and fell striking her chest and abdomen. Denies any head injury or loss of consciousness. Patient is not on anticoagulation. Describes the pain is sharp and worse with movement. Denies any shortness of breath. PFSH [facility] Medical History Arthritis Asthma Benign neoplasm of colon Benign paroxysmal positional vertigo Depressive disorder Diabetes mellitus type II, controlled Essential hypertension GERD (gastroesophageal reflux disease) Latesha's disease History of DVT (deep vein thrombosis) Hyperlipidemia Hypothyroidism Nontoxic multinodular goiter Rosacea Vitamin D deficiency Home Medications albuterol sulfate 1 - 2 puff INHALATION Q4H PRN PRN 09/27/15 [History Last Taken 11/11/18 09:30] calcium phosphate-vitamin D3 1 ea PO DAILY 09/27/15 [History Last Taken 04/16/19] cholecalciferol (vitamin D3) 50,000 unit PO QMONTH 09/27/15 [History Last Taken 03/27/19] levothyroxine 125 mcg PO DAILY 09/27/15 [History Last Taken 04/17/19] magnesium oxide 400 mg PO DAILY 09/27/15 [History Last Taken 04/16/19] omega-3 fatty acids-fish oil 3,400 mg PO DAILY 06/04/17 [History Last Taken 04/16/19] pravastatin 20 mg PO QHS 06/04/17 [History Last Taken 04/16/19] diclofenac sodium 1 applicatio TP PRN PRN 06/09/17 [History Last Taken Unknown] metronidazole 1 applic TOPICAL PRN PRN 06/09/17 [History Last Taken Unknown] polyvinyl alcohol 1 drp EACH EYE DAILY PRN 06/09/17 [History Last Taken Unknown] fluticasone propionate 1 puff INHALATION BID 11/10/18 [History Last Taken 04/17/19] fluticasone propionate 1 spray NASAL PRN PRN 11/10/18 [History Last Taken 04/16/19] omeprazole 20 mg PO DAILY 04/17/19 [History Last Taken 04/17/19] azelastine 137 mcg (0.1 %) nasal spray aerosol 2 spray INTRANASAL QHS ml 07/27/20 [History Last Taken Unknown] losartan 100 mg tablet 100 mg PO DAILY 07/27/20 [History Last Taken Unknown] multivitamin 1 tab PO DAILY 07/27/20 [History Last Taken Unknown] nicotine 7 mg/24 hr daily transdermal patch 1 patch TRANSDERMAL Q24H 07/27/20 [History Last Taken Unknown] salmeterol 50 mcg/dose blister powder for inhalation 1 inh INHALATION BID 07/27/20 [History Last Taken Unknown] metoprolol succinate 50 mg tablet,extended release 24 hr 50 mg PO BID #180 tab 08/02/20 [Rx Last Taken Unknown] Allergy/AdvReac Type Severity Reaction Status Date / Time diclofenac [From Voltaren] Allergy Intermediate Rash Verified 08/15/20 21:54 escitalopram Allergy Other Verified 08/15/20 21:54 simvastatin AdvReac Severe Myalgias Verified 08/15/20 21:54 celecoxib [From Celebrex] AdvReac Intermediate elevated Verified 08/15/20 21:54 blood pressure cephalexin monohydrate AdvReac Intermediate Hives Verified 08/15/20 21:54 [From Keflex] cetirizine [From Zyrtec] AdvReac Intermediate Dizziness Verified 08/15/20 21:54 and blurred vision erythromycin base AdvReac Intermediate GI upset Verified 08/15/20 21:54 etodolac AdvReac Intermediate GI upset Verified 08/15/20 21:54 ezetimibe [From Zetia] AdvReac Intermediate GI upset Verified 08/15/20 21:54 ibuprofen AdvReac Intermediate GI upset Verified 08/15/20 21:54 levofloxacin [From Levaquin] AdvReac Intermediate GI upset Verified 08/15/20 21:54 montelukast [From Singulair] AdvReac Intermediate diarrhea Verified 08/15/20 21:54 nabumetone [From Relafen] AdvReac Intermediate GI upset Verified 08/15/20 21:54 piroxicam AdvReac Intermediate GI upset Verified 08/15/20 21:54 tramadol AdvReac Mild feels Verified 08/15/20 21:54 weird ciprofloxacin [From Cipro] AdvReac Unknown Records Verified 08/15/20 21:54 state contraindicated codeine AdvReac Unknown Unknown Verified 08/15/20 21:54 amoxicillin AdvReac Diarrhea Verified 08/15/20 21:54 budesonide [From Symbicort] AdvReac Other Verified 08/15/20 21:54 bupropion AdvReac Insomnia, Verified 08/15/20 21:54 severe constipation cyclosporine AdvReac Nausea Verified 08/15/20 21:54 formoterol [From Symbicort] AdvReac Other Verified 08/15/20 21:54 ibandronate sodium AdvReac Pain in Verified 08/15/20 21:54 joints methylprednisolone AdvReac Tiny red Verified 08/15/20 21:54 [From Medrol] bumps (she can take Prednisone though) naproxen AdvReac Upset Verified 08/15/20 21:54 Stomach paroxetine AdvReac Suicidal Verified 08/15/20 21:54 ideation tiotropium AdvReac Other Verified 08/15/20 21:54 [From Spiriva with HandiHaler] varenicline AdvReac Suicidal Verified 08/15/20 21:54 ideation Family History Mother CVA (cerebral vascular accident) Hypertension Glaucoma Lung cancer Father Congestive heart failure Grandfather Prostate cancer Heart disease Congestive heart failure Surgical History H/O vaginal hysterectomy History of bunionectomy of both great toes right orbital repair S/P tonsillectomy and adenoidectomy Status post left knee replacement Status post right hip replacement Social History Smoking Status: Current every day smoker tobacco type: cigarettes alcohol intake: never substance use type: does not use caffeine: Yes what type of physical activity do you participate in: walking, aerobics and weight training frequency: 5-6 times per week seatbelt use: always do you feel safe at home: Yes additional social history: [id number] Patient is unemployed ROS ROS ED Constitutional Constitutional ED: Denies chills, fever(s) or sweats Eyes Eyes: Denies blurry vision, change in vision or diplopia ENT ENT ED: Denies rhinorrhea or sore throat Cardiovascular Cardiovascular: Reports chest pain; Denies orthopnea, palpitations or racing heartbeat Respiratory/Chest Respiratory/Chest: Denies cough, dyspnea, dyspnea on exertion, orthopnea or sputum Gastrointestinal Gastrointestinal: Reports abdominal pain; Denies constipation, diarrhea, melena, nausea or vomiting Genitourinary Genitourinary ED: Denies dysuria, hematuria or urinary frequency Musculoskeletal Musculoskeletal: Denies arthralgias, myalgias or neck pain Integumentary Denies rash Neurologic Neurologic: Denies headache(s), paresthesias or weakness Psychiatric Psychiatric: Denies anxiety or depression Hematologic/Lymphatic Hematologic/Lymphatic: Denies easy bleeding or easy bruising Allergic/Immunologic Allergic/Immunologic ED: Denies mouth swelling or tongue swelling EXAM Physical Exam Const Vital Signs: 08/15/20 21:51 08/15/20 22:28 Temperature 97 F L Temperature Source Temporal Pulse Rate 69 Respiratory Rate 22 H Respiratory Effort Normal Respiratory Pattern Normal Blood Pressure 167/78 H Blood Pressure Mean 107 Pulse Ox 96 Oxygen Delivery Method Room Air Positive well nourished and well developed General Appearance ED: well developed HEENT Reports TM's clear and moist mucous membranes normocephalic and atraumatic Tympanic Membrane ED: Yes TM's clear Eyes PERRL and EOMs intact bilaterally Neck no lymphadenopathy, supple and no JVD Chest Wall Chest Narrative: TTP of the anterior chest without overlying changes. Resp normal respiratory effort and clear to auscultation bilaterally Cardio regular rate, S1 normal heart sound, S2 normal heart sound and no murmurs Peripheral Pulses: pulses 2+ throughout GI soft to palpation and non-distended GI Narrative: Milder tenderness diffusely without overlying skin changes. Back/Spine no CVA tenderness and no thoracic nor lumbar tenderness Extremity normal to inspection General Extremety ED: Negative for edema or tenderness General Extremity: Negative for edema Neuro oriented x3, CN's II-XII intact bilaterally and no sensory deficits noted Sensorium / Orientation: alert Motor Exam: strength 5/5 throughout Psych mental status grossly normal Skin no rashes or lesions noted MDM MDM MDM Narrative Medical decision making narrative: Patient appears well nontoxic. Vital signs within normal limits. CT of the chest abdomen pelvis shows no acute traumatic injury. Patient treated with Toradol and will be advised on NSAIDs at home. Stable at time of discharge. Lab Data Attestation: I reviewed the patient's lab results. Labs: Laboratory Results - last 24 hr 08/15/20 22:24 Sodium 138 Potassium 3.9 Chloride 104 Carbon Dioxide 27.0 Anion Gap 7 BUN 22 H Creatinine 0.88 Estim Creat Clear Calc 52.02 Est GFR (MDRD) Af Amer 83 Est GFR (MDRD) Non-Af 69 BUN/Creatinine Ratio 25.1 H Glucose 101 Calcium 9.1 Radiography Diagnostic Testing: Radiology Impression Abdomen/Pelvis CT 08/15/20 22:06 IMPRESSION: No acute traumatic findings. Chronic changes as above. Electronically Signed: Inderjit Jj DO at 0:07 EDT Tel , Service support , Chest CT 08/15/20 22:06 IMPRESSION: No acute traumatic findings. COPD and emphysema. No acute airspace disease Electronically Signed: Inderjit Jj DO at 0:05 EDT Tel , Service support , Discharge Plan Triage Chief Complaint: Fall ED Provider: Elijah August Dx/Rx/DC Orders Clinical Impression: Chest wall contusion, Abdominal wall contusion, Fall Instructions: ED Mechanical Fall Prescriptions: No Action metoprolol succinate 50 mg tablet extended release 24 hr 50 mg PO BID Qty: 180 RF: 2 multivitamin Tablet 1 tab PO DAILY RF: 0 salmeterol 50 mcg/dose blister with device 1 inh inhalation BID RF: 0 losartan 100 mg tablet 100 mg PO DAILY RF: 0 azelastine 137 mcg (0.1 %) aerosol,spray 2 spray intranasal QHS RF: 0 nicotine [Nicoderm CQ] 7 mg/24 hr patch 24 hour 1 patch transdermal Q24H RF: 0 magnesium oxide 400 MG tablet 400 mg PO DAILY RF: 0 levothyroxine 125 MCG tablet 125 mcg PO DAILY RF: 0 albuterol sulfate 1 INHALER inhaler 1 - 2 puff inhalation Q4H PRN PRN (Reason: Sob &/Or Wheezing) RF: 0 cholecalciferol (vitamin D3) 50,000 UNIT capsule 50,000 unit PO QMONTH RF: 0 calcium phosphate-vitamin D3 1 EACH tablet,chewable 1 ea PO DAILY RF: 0 pravastatin 20 MG tablet 20 mg PO QHS RF: 0 omega-3 fatty acids-fish oil 1 EACH capsule 3,400 mg PO DAILY RF: 0 polyvinyl alcohol 15 ML drops 1 drp EACH EYE DAILY PRN (Reason: Dry Eyes) RF: 0 metronidazole 60 GM gel 1 applic topical PRN PRN (Reason: ROSECEA) RF: 0 diclofenac sodium 112 GM solution in metered-dose pump 1 applicatio TP PRN PRN (Reason: pain) RF: 0 fluticasone propionate 1 PUFF inhaler 1 puff inhalation BID RF: 0 fluticasone propionate 1 SPRAY spray,suspension 1 spray NASAL PRN PRN (Reason: Allergies) RF: 0 omeprazole 20 MG capsule 20 mg PO DAILY RF: 0 Primary Care Provider: Anupam Alvarado Referrals: Anupam Alvarado MD [Primary Care Provider] - 2 Days Disposition Disposition: Home, Self Care
[2020-08-16 00:22] VITALS: RESP 16
== END 2020-08-16 00:23 | disposition home or self-care (01) ==
PROVIDERS: Emergency Provider Emergency Medicine; PCP Family Medicine
DX: S30.1XXA Contusion of abdominal wall, initial encounter (principal); S20.219A Contusion of unspecified front wall of thorax, initial encounter; W01.0XXA Fall on same level from slipping, tripping and stumbling without subsequent striking against object, initial encounter; Y93.9 Activity, unspecified; Y92.9 Unspecified place or not applicable; I10 Essential (primary) hypertension; E11.9 Type 2 diabetes mellitus without complications; E55.9 Vitamin D deficiency, unspecified; E78.5 Hyperlipidemia, unspecified; F32.9 Major depressive disorder, single episode, unspecified; H81.10 Benign paroxysmal vertigo, unspecified ear; L71.9 Rosacea, unspecified; E04.2 Nontoxic multinodular goiter; K21.9 Gastro-esophageal reflux disease without esophagitis; E03.9 Hypothyroidism, unspecified; J45.909 Unspecified asthma, uncomplicated; M19.90 Unspecified osteoarthritis, unspecified site; Z86.718 Personal history of other venous thrombosis and embolism; Z79.899 Other long term (current) drug therapy; F17.210 Nicotine dependence, cigarettes, uncomplicated
CPT/HCPCS: 71260; 74177; 80048; 96361; 96374; 96375; 99283; J7030; Q9967; J2405

== ENCOUNTER 2020-08-19 23:16 | Emergency (ER) | payer OTHER, MEDICARE, SELFPAY ==
[2020-08-19 23:17] VITALS: BP 185/82; PULSE 78; RESP 16; TEMP 36.6; O2SAT 95; BMI 30.9
[2020-08-19 23:28] VITALS: O2SAT 96
--- NOTE | 2020-08-19 23:55 | RAD_ITS ---
EXAM: XR CHEST, 1 VIEW : 1955 CLINICAL INDICATION: sob TECHNIQUE: Frontal view of the chest. This report was created using [employer] report generation technology. COMPARISON: 04/17/2019 FINDINGS: LUNGS AND PLEURAL SPACES: There is scar or atelectasis at the lung bases. No pneumothorax. No effusion. HEART: Unremarkable. Cardiac silhouette not enlarged. MEDIASTINUM: Central airways and mediastinal contour are unremarkable. BONES/JOINTS: Unremarkable. SOFT TISSUES: Unremarkable. RAD/Chest 1 View (Portable) IMPRESSION: Interstitial opacities at the lung bases which may represent scar or atelectasis. There is no discrete focal consolidation or effusion. at 0026 Reported and signed by: Shay Melendez MD Electronically Signed: Shay Melendez MD at 0:25 EDT Tel , Service support ,
[2020-08-20] MEDS: traMADol 50 MG Tablet PO (00:02)
--- NOTE | 2020-08-20 00:57 | ED.VIS.DYS ---
HPI History of Present Illness Chief Complaint: Shortness of Breath Informant: patient Onset/Context/Timing Timing: Waxes and wanes (With pain) Current Severity: Gone Maximum Severity: Severe Worsened by: Coughing Relieved by: Albuterol Associated Symptoms Chest Pain: Positive for Aching Narrative Narrative: For 5 days ago, patient had a fall, she injured her entire chest and abdominal wall area anteriorly. She was seen here in the ED, she had CT of abdomen, pelvis, chest it was all negative for injury, including no seen rib fractures. She has been having pain when she moves and when she breathes, especially if she coughs or sneezes. She is also been wheezing off and on. Today and yesterday she had to use her albuterol inhaler every 4 hours. Tonight she was wheezing and in pain, which caused her to be short of breath and very anxious. Her albuterol inhaler helped. She has not been taking pain medication. Her pulse oximetry was 89% on one point. She is not on home oxygen and has COPD. She has had no fevers lately, her cough has been nonproductive and basically similar to usual. She does have some seasonal allergies in the summer. [facility] Medical History Arthritis Asthma Benign neoplasm of colon Benign paroxysmal positional vertigo Depressive disorder Diabetes mellitus type II, controlled Essential hypertension GERD (gastroesophageal reflux disease) Latesha's disease History of DVT (deep vein thrombosis) Hyperlipidemia Hypothyroidism Nontoxic multinodular goiter Rosacea Vitamin D deficiency Home Medications albuterol sulfate 1 - 2 puff INHALATION Q4H PRN PRN 09/27/15 [History Last Taken 11/11/18 09:30] calcium phosphate-vitamin D3 1 ea PO DAILY 09/27/15 [History Last Taken 04/16/19] cholecalciferol (vitamin D3) 50,000 unit PO QMONTH 09/27/15 [History Last Taken 03/27/19] levothyroxine 125 mcg PO DAILY 09/27/15 [History Last Taken 04/17/19] magnesium oxide 400 mg PO DAILY 09/27/15 [History Last Taken 04/16/19] omega-3 fatty acids-fish oil 3,400 mg PO DAILY 06/04/17 [History Last Taken 02/21/20] pravastatin 20 mg PO QHS 06/04/17 [History Last Taken 04/16/19] diclofenac sodium 1 applicatio TP PRN PRN 06/09/17 [History Last Taken Unknown] metronidazole 1 applic TOPICAL PRN PRN 06/09/17 [History Last Taken Unknown] polyvinyl alcohol 1 drp EACH EYE DAILY PRN 06/09/17 [History Last Taken Unknown] fluticasone propionate 1 puff INHALATION BID 11/10/18 [History Last Taken 04/17/19] fluticasone propionate 1 spray NASAL PRN PRN 11/10/18 [History Last Taken 04/16/19] omeprazole 20 mg PO DAILY 04/17/19 [History Last Taken 04/17/19] azelastine 137 mcg (0.1 %) nasal spray aerosol 2 spray INTRANASAL QHS ml 07/27/20 [History Last Taken Unknown] losartan 100 mg tablet 100 mg PO DAILY 07/27/20 [History Last Taken Unknown] multivitamin 1 tab PO DAILY 07/27/20 [History Last Taken Unknown] nicotine 7 mg/24 hr daily transdermal patch 1 patch TRANSDERMAL Q24H 07/27/20 [History Last Taken Unknown] salmeterol 50 mcg/dose blister powder for inhalation 1 inh INHALATION BID 07/27/20 [History Last Taken Unknown] metoprolol succinate 50 mg tablet,extended release 24 hr 50 mg PO BID #180 tab 08/02/20 [Rx Last Taken Unknown] prednisone 20 mg PO DAILY #5 tab 08/20/20 [Rx Last Taken Unknown] tramadol 50 mg PO Q6H PRN PRN 3 Days #12 tab 08/20/20 [Rx Last Taken Unknown] Allergy/AdvReac Type Severity Reaction Status Date / Time diclofenac [From Voltaren] Allergy Intermediate Rash Verified 08/19/20 23:21 escitalopram Allergy Other Verified 08/19/20 23:21 simvastatin AdvReac Severe Myalgias Verified 08/19/20 23:21 celecoxib [From Celebrex] AdvReac Intermediate elevated Verified 08/19/20 23:21 blood pressure cephalexin monohydrate AdvReac Intermediate Hives Verified 08/19/20 23:21 [From Keflex] cetirizine [From Zyrtec] AdvReac Intermediate Dizziness Verified 08/19/20 23:21 and blurred vision erythromycin base AdvReac Intermediate GI upset Verified 08/19/20 23:21 etodolac AdvReac Intermediate GI upset Verified 08/19/20 23:21 ezetimibe [From Zetia] AdvReac Intermediate GI upset Verified 08/19/20 23:21 ibuprofen AdvReac Intermediate GI upset Verified 08/19/20 23:21 levofloxacin [From Levaquin] AdvReac Intermediate GI upset Verified 08/19/20 23:21 montelukast [From Singulair] AdvReac Intermediate diarrhea Verified 08/19/20 23:21 nabumetone [From Relafen] AdvReac Intermediate GI upset Verified 08/19/20 23:21 piroxicam AdvReac Intermediate GI upset Verified 08/19/20 23:21 tramadol AdvReac Mild feels Verified 08/19/20 23:21 weird ciprofloxacin [From Cipro] AdvReac Unknown Records Verified 08/19/20 23:21 state contraindicated codeine AdvReac Unknown Unknown Verified 08/19/20 23:21 amoxicillin AdvReac Diarrhea Verified 08/19/20 23:21 budesonide [From Symbicort] AdvReac Other Verified 08/19/20 23:21 bupropion AdvReac Insomnia, Verified 08/19/20 23:21 severe constipation cyclosporine AdvReac Nausea Verified 08/19/20 23:21 formoterol [From Symbicort] AdvReac Other Verified 08/19/20 23:21 ibandronate sodium AdvReac Pain in Verified 08/19/20 23:21 joints methylprednisolone AdvReac Tiny red Verified 08/19/20 23:21 [From Medrol] bumps (she can take Prednisone though) naproxen AdvReac Upset Verified 08/19/20 23:21 Stomach paroxetine AdvReac Suicidal Verified 08/19/20 23:21 ideation tiotropium AdvReac Other Verified 08/19/20 23:21 [From Spiriva with HandiHaler] varenicline AdvReac Suicidal Verified 08/19/20 23:21 ideation Family History Mother CVA (cerebral vascular accident) Hypertension Glaucoma Lung cancer Father Congestive heart failure Grandfather Prostate cancer Heart disease Congestive heart failure Surgical History H/O vaginal hysterectomy History of bunionectomy of both great toes right orbital repair S/P tonsillectomy and adenoidectomy Status post left knee replacement Status post right hip replacement Social History Smoking Status: Current every day smoker tobacco type: cigarettes alcohol intake: never substance use type: does not use caffeine: Yes what type of physical activity do you participate in: walking, aerobics and weight training frequency: 5-6 times per week seatbelt use: always do you feel safe at home: Yes additional social history: [employer] Patient is unemployed ROS ROS ED Constitutional Constitutional ED: Denies chills or fever(s) Eyes Eyes: Denies change in vision or diplopia ENT ENT ED: Denies rhinorrhea or sore throat Cardiovascular Cardiovascular: Reports as per HPI and chest pain Respiratory/Chest Respiratory/Chest: Reports as per HPI, cough and dyspnea Gastrointestinal Gastrointestinal: Denies diarrhea, nausea or vomiting Genitourinary Genitourinary ED: Denies dysuria or hematuria Musculoskeletal Musculoskeletal: Denies back pain or neck pain Integumentary Denies abscess or rash Neurologic Neurologic: Denies headache(s), paresthesias or weakness Psychiatric Psychiatric: Denies anxiety or suicidal thoughts EXAM Physical Exam Const Vital Signs: 08/19/20 23:17 08/20/20 00:02 Temperature 97.9 F Temperature Source Temporal Pulse Rate 78 Respiratory Rate 16 Respiratory Effort Normal Respiratory Pattern Normal Blood Pressure 185/82 H Blood Pressure Mean 116 Pulse Ox 95 Oxygen Delivery Method Room Air Positive well nourished and well developed General Appearance ED: well developed and NAD HEENT Reports moist mucous membranes normocephalic and atraumatic Eyes PERRL and EOMs intact bilaterally Neck full ROM and supple Resp normal respiratory effort and clear to auscultation bilaterally Cardio regular rate, regular rhythm and no murmurs GI non-tender and non-distended Auscultation: normoactive bowel sounds Palpation: soft Back/Spine no CVA tenderness General Back: other FROM Extremity normal to inspection General Extremety ED: Negative for edema, pulses abnormal or tenderness General Extremity: Negative for edema or pulses abnormal Neuro oriented x3, CN's II-XII intact bilaterally and no sensory deficits noted Sensorium / Orientation: awake and alert Motor Exam: strength 5/5 throughout Psych Attitude: No agitated Mood & Affect: anxious Skin no rashes or lesions noted and no wounds MDM MDM MDM Narrative Medical decision making narrative: Patient has no wheezing now and is doing well. She was given an Ultram which helped. She will be given a short course of that, and a wait and see prescription for prednisone. She is a borderline diabetic, she understands that prednisone may make her blood sugars elevate, and we both do not want her to take it unless she needs it. I would see how things go tomorrow with regards to her wheezing, I do not think she has an infection, but if she is having allergies giving her an asthma exacerbation, she can fill and take the prescription until finished. She is comfortable with that plan. Radiography Chest X-Ray - ED: 1 View, Read by ED Physician, Chronic Changes and No Infiltrates Diagnostic Testing: Radiology Impression Chest X-Ray 08/19/20 23:55 IMPRESSION: Interstitial opacities at the lung bases which may represent scar or atelectasis. There is no discrete focal consolidation or effusion. at 0026 Reported and signed by: Shay Melendez MD Electronically Signed: Shay Melendez MD at 0:25 EDT Tel , Service support , Discharge Plan Triage Chief Complaint: Shortness of Breath ED Provider: Berny Damon Dx/Rx/DC Orders Clinical Impression: Asthma, Chest wall contusion Instructions: ED Chest Wall Contusion, Asthma Prescriptions: New tramadol 50 MG tablet 50 mg PO Q6H PRN PRN (Reason: Pain) 3 Days Qty: 12 RF: 0 prednisone 20 mg tablet 20 mg PO DAILY Qty: 5 RF: 0 No Action metoprolol succinate 50 mg tablet extended release 24 hr 50 mg PO BID Qty: 180 RF: 2 multivitamin Tablet 1 tab PO DAILY RF: 0 salmeterol 50 mcg/dose blister with device 1 inh inhalation BID RF: 0 losartan 100 mg tablet 100 mg PO DAILY RF: 0 azelastine 137 mcg (0.1 %) aerosol,spray 2 spray intranasal QHS RF: 0 nicotine [Nicoderm CQ] 7 mg/24 hr patch 24 hour 1 patch transdermal Q24H RF: 0 magnesium oxide 400 MG tablet 400 mg PO DAILY RF: 0 levothyroxine 125 MCG tablet 125 mcg PO DAILY RF: 0 albuterol sulfate 1 INHALER inhaler 1 - 2 puff inhalation Q4H PRN PRN (Reason: Sob &/Or Wheezing) RF: 0 cholecalciferol (vitamin D3) 50,000 UNIT capsule 50,000 unit PO QMONTH RF: 0 calcium phosphate-vitamin D3 1 EACH tablet,chewable 1 ea PO DAILY RF: 0 pravastatin 20 MG tablet 20 mg PO QHS RF: 0 omega-3 fatty acids-fish oil 1 EACH capsule 3,400 mg PO DAILY RF: 0 polyvinyl alcohol 15 ML drops 1 drp EACH EYE DAILY PRN (Reason: Dry Eyes) RF: 0 metronidazole 60 GM gel 1 applic topical PRN PRN (Reason: ROSECEA) RF: 0 diclofenac sodium 112 GM solution in metered-dose pump 1 applicatio TP PRN PRN (Reason: pain) RF: 0 fluticasone propionate 1 PUFF inhaler 1 puff inhalation BID RF: 0 fluticasone propionate 1 SPRAY spray,suspension 1 spray NASAL PRN PRN (Reason: Allergies) RF: 0 omeprazole 20 MG capsule 20 mg PO DAILY RF: 0 Primary Care Provider: Anupam Alvarado Referrals: Anupam Alvarado MD [Primary Care Provider] - 3-5 Days if not improving Disposition Disposition: Home, Self Care
[2020-08-20 01:13] VITALS: PULSE 76; RESP 16; O2SAT 98
== END 2020-08-20 02:12 | disposition home or self-care (01) ==
PROVIDERS: Emergency Provider Emergency Medicine; PCP Family Medicine
DX: S20.219A Contusion of unspecified front wall of thorax, initial encounter (principal); J45.909 Unspecified asthma, uncomplicated; W19.XXXA Unspecified fall, initial encounter; Y93.9 Activity, unspecified; Y92.9 Unspecified place or not applicable; I10 Essential (primary) hypertension; K21.9 Gastro-esophageal reflux disease without esophagitis; H81.10 Benign paroxysmal vertigo, unspecified ear; E11.9 Type 2 diabetes mellitus without complications; E03.9 Hypothyroidism, unspecified; E06.3 Autoimmune thyroiditis; E55.9 Vitamin D deficiency, unspecified; E78.5 Hyperlipidemia, unspecified; F32.9 Major depressive disorder, single episode, unspecified; L71.9 Rosacea, unspecified; M19.90 Unspecified osteoarthritis, unspecified site; Z86.718 Personal history of other venous thrombosis and embolism; Z79.899 Other long term (current) drug therapy; F17.210 Nicotine dependence, cigarettes, uncomplicated
CPT/HCPCS: 71045; 99283

== ENCOUNTER → 2020-10-17 09:47 | Outpatient (CLI) | payer OTHER, MEDICARE, SELFPAY ==
[2020-10-17 11:00] LABS: AST(SGOT) 21 U/L (15-37); Alanine Aminotransfer ALT/SGPT 29 U/L (13-56); Albumin, Serum 3.4 g/dL (3.2-5.0); Alkaline Phosphatase 108 U/L (45-117); Bilirubin, Direct 0.14 mg/dL (0.00-0.30); Cholesterol 240 mg/dL (200); High Density Lipoprotein 58 mg/dL; Protein, Total 7.4 g/dL (6.4-8.2); Triglycerides 144 mg/dL; Very Low Density Lipoprotein 29 mg/dL (5-40)
== END ==
PROVIDERS: PCP Family Medicine; Referring Provider Internal Medicine Cardiovascular Disease; Visit Provider Internal Medicine Cardiovascular Disease
DX: E78.00 Pure hypercholesterolemia, unspecified (principal)
CPT/HCPCS: 36415; 80061; 80076

== ENCOUNTER 2020-11-22 11:52 | Outpatient (CLI) | payer OTHER, MEDICARE, SELFPAY ==
[2020-11-22] MEDS: 0.9% Saline Lock 10 ML Syringe IV (12:06)
[2020-11-22 12:16] VITALS: BP 152/68; PULSE 87; RESP 16; TEMP 36.6; O2SAT 96; BMI 29.4
[2020-11-22 12:48] VITALS: BP 148/62; PULSE 76; RESP 16; TEMP 36.9; O2SAT 97
[2020-11-22 13:48] VITALS: BP 147/65; PULSE 70; RESP 16; TEMP 36.7; O2SAT 97
== END 2020-11-22 13:48 | disposition home or self-care (01) ==
LOC: MS3OUT 11:53 → MS3 11:54
PROVIDERS: PCP Family Medicine; Referring Provider Nurse Practitioner Adult Health; Visit Provider Nurse Practitioner Adult Health
DX: Z23 Encounter for immunization (principal); U07.1 COVID-19
CPT/HCPCS: J7050; M0243; A4216; Q0244

== ENCOUNTER 2021-03-21 09:29 | Outpatient (CLI) | payer OTHER, MEDICARE, SELFPAY ==
[2021-03-21 12:26] LABS: AST(SGOT) 15 U/L (15-37); Alanine Aminotransfer ALT/SGPT 25 U/L (13-56); Albumin, Serum 3.4 g/dL (3.2-5.0); Alkaline Phosphatase 94 U/L (45-117); Bilirubin, Direct 0.13 mg/dL (0.00-0.30); Cholesterol 239 mg/dL (200); Globulin 3.9 g/dL (2.2-4.2); High Density Lipoprotein 60 mg/dL; Protein, Total 7.3 g/dL (6.4-8.2); Triglycerides 140 mg/dL; Very Low Density Lipoprotein 28 mg/dL (5-40)
--- NOTE | 2021-03-22 13:14 | PFT ---
INTRODUCTION: The patient is a 66-year-old female that presents for pulmonary function studies secondary to a diagnosis of shortness of breath. Respiratory therapy reported good patient effort. Bronchodilators were used during testing. INTERPRETATION: Forced expiration spirometry demonstrates the presence of a mild large airways obstructive ventilatory defect. There was no significant response to aerosolized bronchodilators. Spirograms are of good quality and plateau gradually indicating slow emptying of the lungs. Body plethysmography was performed and reveals lung volumes to be within normal limits. Diffusing capacity by single breath CO was moderately reduced at 54% of predicted. IMPRESSION: Irreversible mild large airways obstructive ventilatory defect with preserved lung volumes and disproportionate reduction in diffusing capacity.
== END 2021-03-21 23:59 | disposition short-term general hospital (02) ==
PROVIDERS: PCP Family Medicine; Referring Provider Nurse Practitioner Acute Care; Visit Provider Internal Medicine Cardiovascular Disease
DX: R06.02 Shortness of breath (principal); E78.00 Pure hypercholesterolemia, unspecified
CPT/HCPCS: 36415; 80061; 80076; 94060; 94726; 94729

== ENCOUNTER 2021-03-27 11:15 | Outpatient (CLI) | payer OTHER, MEDICARE, SELFPAY ==
[2021-03-27 11:15] VITALS: PULSE 80; PULSE 82; PULSE 87; PULSE 90; PULSE 91; O2SAT 93; O2SAT 94; O2SAT 95; O2SAT 96; O2SAT 97
--- NOTE | 2021-03-27 14:10 | PCM.PSN.6M ---
PSN 6 Minute Walk Test 6 Minute Walk Test 6 Minute Walk Test: 6 Minute Walk Test PSN:6-Minute Walk Test Start: 03/27/21 12:08 Freq: Status: Active Protocol: [id number] Document 03/27/21 11:15 MARINO (Rec: 03/27/21 12:12 [id number]) 6 Minute Walk Test Date Performed 03/27/21 Time Performed 11:15 Height 5 ft 3 in Weight: 78.471 kg Weight in Pounds 173.[address]: Eunice Damian [employer] [facility] FIO2 (% Oxygen) 21 Assistive device used: None Pre-test Oxygen Delivery Method Room Air Pulse Ox (%) 97 Pulse Rate (60-100 beats/min) 80 Dyspnea Julia Scale (0-10) 0 Exertion Julia Scale (6-20) 6 1st minute Oxygen Delivery Method Room Air Pulse Ox (%) 95 Pulse Rate (60-100 beats/min) 87 2nd minute Oxygen Delivery Method Room Air Pulse Ox (%) 96 Pulse Rate (60-100 beats/min) 91 3rd minute Oxygen Delivery Method Room Air Pulse Ox (%) 96 Pulse Rate (60-100 beats/min) 90 4th minute Oxygen Delivery Method Room Air Pulse Ox (%) 94 Pulse Rate (60-100 beats/min) 90 5th minute Oxygen Delivery Method Room Air Pulse Ox (%) 94 Pulse Rate (60-100 beats/min) 90 6th minute Oxygen Delivery Method Room Air Pulse Ox (%) 93 Pulse Rate (60-100 beats/min) 91 Post-test Oxygen Delivery Method Nasal Cannula Pulse Ox (%) 95 Pulse Rate (60-100 beats/min) 82 Dyspnea Julia Scale (0-10) 2 Exertion Julia Scale (6-20) 11 Full Laps Walked 18 Partial Lap, Number of Tiles Walked 8 Total Distance Walked (ft) 1070 Interpretation Interpretation: The patient was able to ambulate 1070 feet over the course of 6 minutes on room air with no assistive devices or breaks. No significant tachycardia or desaturation was noted. These findings are consistent with a normal walking oximetry. Recommendations Recommendations: No supplemental oxygen is indicated at this time.
== END 2021-03-27 23:59 | disposition short-term general hospital (02) ==
LOC: PSN 11:20
PROVIDERS: PCP Family Medicine; Referring Provider Nurse Practitioner Acute Care; Visit Provider Nurse Practitioner Acute Care
DX: R06.02 Shortness of breath (principal)
CPT/HCPCS: 94618

== ENCOUNTER → 2022-05-14 | Outpatient (CLI) | payer OTHER, MEDICARE, SELFPAY ==
--- NOTE | 2022-05-14 12:54 | CT_ITS ---
STUDY: LOW DOSE CT LUNG CANCER SCREENING REASON FOR EXAM: Female, 67 years old. Period patient smoked 2 packs per day for 55 years. smoking -- patient wants to pay timmons [facility] RADIATION DOSAGE (If Supplied By Facility): CTDIvol = ( 3.02 ) mGy, DLP = ( 101.94 ) mGycm TECHNIQUE: No contrast was administered. Low dose technique was utilized (average mAS-38 and kVp 120). 1.25 mm axial source images with a slice interval of 1.25-mm were reconstructed in lung windows. 2.5 mm axial source images with a slice interval of 2.5-mm were reconstructed in lung windows. 5.0 mm axial source images with a slice interval of 5.0-mm were reconstructed in soft tissue windows. COMPARISON: Comparison is made with prior study dated August 15, 2020. NODULES: There is a 8.5 mm x 1 cm noncalcified nodule in the anterior medial aspect of the right lower lobe as seen on axial image #171 and coronal image #122. This was not seen on prior study. Emphysema: Hyperinflation. Emphysematous changes more prominent in the upper lobes with centrilobular emphysema. Minimal increased markings in the posterior superior segment of the right lower lobe suggestive of scarring. Endobronchial lesion: Unremarkable Aorta: Calcified plaques. CORONARY ARTERIES: Coronary artery calcification is seen. Heart: Unremarkable Pulmonary artery: Unremarkable Mediastinal nodes: Other chest and abdominal findings: CT/Low Dose CT Lung Screening IMPRESSION: Lung-RADS category 4A - Screening at 3 months with LDCT or evaluation with PET/CT may be used. IMPORTANT NOTES FOR USE: ACR Lung-RADS Version 1.1 Assessment Categories Release Date: 2018 Category: Coded 0-4 bases on nodule(s) with highest degree of suspicion. Negative screen is defined as categories 1 and 2; a positive screen is defined as categories 3 and 4. Category 3 and 4A nodules that are unchanged on interval CT should be coded as category 2, and individuals returned to screening in 12 months. Category 4X: Category 3 or 4 nodules with additional imaging findings that increase the suspicion of lung cancer, such as spiculation, GGN that doubles in size in 1 year, enlarged lymph notes, etc. Category Modifiers: S (significant finding unrelated to lung cancer) Electronically Signed: Rah Brian MD at 15:44 EDT ,
== END | disposition home or self-care (01) ==
PROVIDERS: PCP Family Medicine; Visit Provider Nurse Practitioner Acute Care
DX: F17.210 Nicotine dependence, cigarettes, uncomplicated (principal)
CPT/HCPCS: 71271

== ENCOUNTER → 2024-04-20 | Outpatient (CLI) | payer OTHER, MEDICARE, SELFPAY ==
[2024-04-20 19:51] LABS: CRYSTALS, BODY FLUID See PATH REV; Source- Body Fluid SYNOVIAL
[2024-04-20 20:03] LABS: Body Fluid QC Type(s) BF1Q
[2024-04-21 14:41] LABS: Pathologist Review Reviewed
== END | disposition home or self-care (01) ==
LOC: LABSPEC 17:05
PROVIDERS: PCP Family Medicine
DX: M10.9 Gout, unspecified (principal); L03.031 Cellulitis of right toe; L02.611 Cutaneous abscess of right foot
CPT/HCPCS: 87070; 87075; 87077; 87186; 87205; 89060

== ENCOUNTER → 2024-04-22 | Outpatient (CLI) | payer MEDICARE, OTHER, SELFPAY ==
[2024-04-22 15:01] LABS: Absolute Lymphocyte Count 2.52 X10^3/uL (0.83-4.51); Absolute Neutrophil Count 6.5 X10^3/uL (2.0-7.7); Basophil# 0.08 X10^3/uL; Basophil% 0.8 % (0-1); Eosinophil# 0.13 X10^3/uL; Eosinophils% 1.3 % (0-5); Hemoglobin 15.4 g/dL (12.0-15.0); Lymphocyte # 2.52 X10^3/ul (0.83-4.51); Lymphocyte % 25.3 % (19-41); Mean Corp Hgb Conc 34.2 g/dL (32-36); Mean Corpuscular Hgb 31.2 pg (27.0-32.0); Mean Corpuscular Volume 91.3 fL (81-99); Mean Platelet Vol. 10.5 fl (6.2-12.0); Monocyte# 0.65 X10^3/uL; Monocyte% 6.5 % (0-10); NRBC Flagged by Analyzer 0 % (0-5); Neutrophil # 6.54 X10^3/uL (2.7-7.7); Neutrophil % 65.8 % (47-70); Platelet Count 237 K/mm3 (150-450); RBC Distribution Width CV 13.4 % (11.6-14.6); RBC Distribution Width SD 45.4 fl (35.1-43.9); Red Blood Count 4.93 M/mm3 (4.2-5.4)
[2024-04-22 15:13] LABS: Erythrocyte Sedimentation Rate 21 mm/hr (0-30)
[2024-04-22 19:20] LABS: CRP 6.87 mg/L (0.0-3.0)
== END | disposition home or self-care (01) ==
LOC: MTLAB 13:13
PROVIDERS: PCP Family Medicine; Referring Provider Podiatrist; Visit Provider Podiatrist
DX: L03.90 Cellulitis, unspecified (principal)
CPT/HCPCS: 36415; 85025; 85652; 86140

== ENCOUNTER → 2024-04-28 | Outpatient (CLI) | payer MEDICARE, OTHER, SELFPAY | END | disposition home or self-care (01) | PROVIDERS: PCP Family Medicine; Visit Provider Podiatrist | DX: L03.031 Cellulitis of right toe (principal) | CPT/HCPCS: 87070; 87205 ==

== ENCOUNTER → 2025-02-01 | Outpatient (CLI) | payer MEDICARE, OTHER, SELFPAY ==
--- NOTE | 2025-02-01 14:01 | VDLE_ITS ---
Reason For Study Reason For Study: RLE PAIN RIGHT LEFT GSV is normal. CFV is compressible, spontaneous, phasic, competent, CFV is compressible, spontaneous, phasic, competent and demonstrates normal augmentation. and demonstrates normal augmentation. FV is compressible, spontaneous, phasic, competent and demonstrates normal augmentation. POP V is compressible, spontaneous, phasic, competent and demonstrates normal augmentation. T/P Trunk is compressible. PTV is compressible. RT PerV is compressible. Procedure This is a venous duplex using B-mode, color flow and spectral Doppler. Exam performed in department. The study was technically difficult. A preliminary report was called and/or faxed to Dr. Eubanks @ [phone] @ 14:40. VL/Venous Duplex US, Unilateral Interpretation Summary Deep veins of the right lower extremity are patent and compressible segmentally . There is no evidence of right lower extremity deep vein thrombosis. Valvular competence appears intact within the p roximal deep venous system on the right . The right great saphenous vein appears patent and compressible segmentally. The left common femoral vein is patent and compressible . Ordering Physician: Olman Eubanks Referring Physician: Liliane Alvarado Performed By: Brittney Zimmerman, SADIE, RVT
== END | disposition home or self-care (01) ==
LOC: CVS 13:58
PROVIDERS: PCP Family Medicine; Referring Provider Podiatrist; Visit Provider Podiatrist
DX: R22.41 Localized swelling, mass and lump, right lower limb (principal); M79.661 Pain in right lower leg
CPT/HCPCS: 93971